=== PATIENT | female | born 1950 | race Caucasian/White ===

== ENCOUNTER 2017-09-30 22:39 | Emergency (ER) | payer OTHER ==
[2017-09-30 22:44] VITALS: BP 119/76; PULSE 65; TEMP 98; BMI 24.1
--- NOTE | 2017-09-30 22:44 | PDOC ---
History of Present Illness - General Chief Complaint: Injury Stated Complaint: S/P FALL PAIN/SWELLING R 1ST DIGIT Time Seen by Provider: 09/30/17 22:42 History Source: Patient Exam Limitations: No Limitations - History of Present Illness Initial Comments: This is a 67-year-old female who comes in complaining of pain to her right first digit. Patient said she tripped and stubbed her toe resulting in injury to the toe. PAST MEDICAL HISTORY: no significant history PAST SURGICAL HISTORY: no significant history FAMILY HISTORY: no pertinant history SOCIAL HISTORY: Pt lives with family and is employed. MEDICATIONS: reviewed ALLERGIES: As per nursing notes Review of Systems General: No fevers or chills, no weakness, no weight loss HEENT: No change in vision. No sore throat,. No ear pain CardioVascular: No chest pain or shortness of breath Respiratory:No cough, or wheezing. Gastrointestinal: no nausea, vomitting, diarrhea or constipation, No rectal bleeding Genitourinary: No dysuria, hematuria, or frequency Musculoskeletal: No joint or muscle pain or swelling Neurologic: No headache, vertigo, dizziness or loss of consciousness Psychiatric: nor depression Skin: No rashes or easy bruising Endocrine: no increased thirst or abnormal weight change Allergic: no skin or latex allergy All other systems reviewed and normal GENERAL: The patient is awake, alert, and fully oriented, in no acute distress. HEAD: Normal with no signs of trauma. EYES: Pupils equal, round and reactive to light, extraocular movements intact, sclera anicteric, conjunctiva clear. EXTREMITIES: Normal range of motion, no edema. Right great toe there is ecchymosis and pain on palpation of the base of the great toe. Neurovascular distal is intact. NEUROLOGICAL: Normal speech, normal gait. grossly intact PSYCH: Normal mood, normal affect. SKIN: Warm, Dry, normal turgor, no rashes or lesions noted. Past History - Past Medical History Allergies/Adverse Reactions: Allergies Allergy/AdvReac Type Severity Reaction Status Date / Time No Known Allergies Allergy Verified 08/05/14 20:35 Home Medications: Ambulatory Orders Amlodipine Besylate/Benazepril [Lotrel 10-20 mg Capsule] 1 each PO DAILY #30 capsule 06/10/12 Atorvastatin Calcium [Lipitor] 10 mg PO HS #0 tablet 06/10/12 Pantoprazole Sodium [Protonix -] 40 mg PO DAILY #10 tablet.ec 08/09/14 GI Disorders: (hx diverticulitis) HTN: Yes Hypercholesterolemia: Yes - Immunization History Immunization Up to Date: Yes - Suicide/Smoking/Psychosocial Hx Smoking Status: No Smoking History: Never smoked Years of Tobacco Use: 0 Have you smoked in the past 12 months: No Number of Cigarettes Smoked Daily: 0 If you are a former smoker, when did you quit?: 15 years ago Cigars Per Day: 0 Hx Alcohol Use: No Drug/Substance Use Hx: No Substance Use Type: None Hx Substance Use Treatment: No *DC/Admit/Observation/Transfer Diagnosis at time of Disposition: Fracture of right great toe Qualifiers: Encounter type: initial encounter Fracture type: closed Phalanx: proximal Fracture alignment: nondisplaced Qualified Code(s): S92.414A - Nondisplaced fracture of proximal phalanx of right great toe, initial encounter for closed fracture - Discharge Dispostion Disposition: HOME Condition at time of disposition: Good Decision to Admit order: No - Referrals - Patient Instructions Additional Instructions: Grey tape the toe as often as needed. Tylenol or Motrin for pain wear open toed shoe. Return to the emergency department immediately with ANY new, persistent or worsening symptoms. Continue any medications as previously prescribed by your physician. You should follow up with your primary doctor as soon as possible regarding today's emergency department visit. . Please make sure your doctor reviews the results of your emergency evaluation. Thank you for coming to the Emergency Department today for your care. It was a pleasure to see you today. Please note that your evaluation is INCOMPLETE until you follow-up with your doctor. - Post Discharge Activity
[2017-09-30] MEDS ORDERED: DIPHTH,PERTUSS(ACELL),TET 0.5 ML DISP.SYRIN IM ONE (22:45)
== END 2017-09-30 23:36 | disposition home or self-care (01) ==
LOC: FER 22:39
PROC: 3E0234Z Introduction of Serum, Toxoid and Vaccine into Muscle, Percutaneous Approach (ICD-10-PCS; principal; 2017-09-30)
PROC: 2W3UXYZ Immobilization of Right Toe using Other Device (ICD-10-PCS; 2017-09-30)
DX: S92.414A Nondisplaced fracture of proximal phalanx of right great toe, initial encounter for closed fracture (principal); Z87.891 Personal history of nicotine dependence; I10 Essential (primary) hypertension; E78.00 Pure hypercholesterolemia, unspecified; W22.01XA Walked into wall, initial encounter; Y93.89 Activity, other specified; Y92.9 Unspecified place or not applicable
CPT/HCPCS: 73630-TC-RT-FY; 73660-TC-FY; 90715; 99282-25

== ENCOUNTER 2018-10-21 22:32 | Emergency (ER) | payer OTHER ==
[2018-10-21 22:42] VITALS: BP 121/67; PULSE 63; TEMP 98.6; BMI 25.0
[2018-10-21] MEDS ORDERED: SODIUM CHLORIDE 1,000 ML IV STA (23:42)
[2018-10-21] MEDS ORDERED: ONDANSETRON 4 MG/2 ML VIAL IVPUSH ONE (23:43)
[2018-10-22] MEDS ORDERED: ACETAMINOPHEN 1000 MG/100 ML VIAL (NON FORMULARY) IVPB ONE (00:29)
[2018-10-22 01:06] LABS: BASO % 0.2 % (0-2.0); EOS % 0.1 % (0-4.5); HEMATOCRIT 38.3 % (32.4-45.2); HEMOGLOBIN 12.9 GM/dL (10.7-15.3); LYMPH % 5.6 % (8-40); MCH 29.6 pg (25.7-33.7); MCHC 33.7 g/dl (32.0-36.0); MEAN CELL VOLUME 87.7 fl (80-96); MEAN PLT VOLUME 9.5 fl (7.5-11.1); MONO % 2.5 % (3.8-10.2); NEUT % 91.6 % (42.8-82.8); PLATELET COUNT 247 K/MM3 (134-434); RBC 4.36 M/mm3 (3.60-5.2); RDW 13.4 % (11.6-15.6); WHITE BLOOD COUNT 9.7 K/mm3 (4.0-10.0)
[2018-10-22 01:14] LABS: ALBUMIN 3.9 g/dl (3.4-5.0); BILIRUBIN,TOTAL 0.3 mg/dL (0.2-1); BLOOD UREA NITROGEN 14.8 mg/dL (7-18); CALCIUM 8.8 mg/dL (8.5-10.1); CREATININE 0.6 mg/dL (0.55-1.3); TOT PROT 7.4 g/dl (6.4-8.2)
[2018-10-22] MEDS ORDERED: ONDANSETRON 4 MG/2 ML VIAL ONE (01:34)
--- NOTE | 2018-10-22 01:36 | PDOC ---
History of Present Illness - General Chief Complaint: Nausea/Vomiting Stated Complaint: NAUSEA/VOMITING Time Seen by Provider: 10/21/18 23:32 History Source: Patient Exam Limitations: No Limitations Past History - Past Medical History Allergies/Adverse Reactions: Allergies Allergy/AdvReac Type Severity Reaction Status Date / Time No Known Allergies Allergy Verified 10/21/18 22:42 Home Medications: Ambulatory Orders Amlodipine Besylate/Benazepril [Lotrel 10-20 mg Capsule] 1 each PO DAILY #30 capsule 06/10/12 Atorvastatin Calcium [Lipitor] 10 mg PO HS #0 tablet 06/10/12 Pantoprazole Sodium [Protonix -] 40 mg PO DAILY #10 tablet.ec 08/09/14 COPD: No GI Disorders: (hx diverticulitis) HTN: Yes Hypercholesterolemia: Yes - Immunization History Immunization Up to Date: Yes - Suicide/Smoking/Psychosocial Hx Smoking Status: No Smoking History: Never smoked Years of Tobacco Use: 0 Have you smoked in the past 12 months: No Number of Cigarettes Smoked Daily: 0 If you are a former smoker, when did you quit?: 15 years ago Cigars Per Day: 0 Hx Alcohol Use: No Drug/Substance Use Hx: No Substance Use Type: None Hx Substance Use Treatment: No *Physical Exam - Vital Signs Last Vital Signs Temp Pulse Resp BP Pulse Ox 98.6 F 63 18 121/67 97 10/21/18 22:39 10/21/18 22:39 10/21/18 22:39 10/21/18 22:39 10/21/18 22:39 - Physical Exam General Appearance: No: Apparent Distress Respiratory/Chest: positive: Lungs Clear, Normal Breath Sounds. negative: Respiratory Distress Cardiovascular: positive: Regular Rhythm, Regular Rate, S1, S2. negative: Murmur Gastrointestinal/Abdominal: positive: Normal Bowel Sounds, Soft. negative: Tender, Distended, Guarding, Rebound Musculoskeletal: negative: CVA Tenderness Integumentary: positive: Normal Color Neurologic: positive: Alert, Normal Mood/Affect ED Treatment Course - LABORATORY CBC & Chemistry Diagram: 10/22/18 00:34 10/22/18 00:34 - ADDITIONAL ORDERS Additional order review: Laboratory Results 10/22/18 00:34 Sodium 139 Potassium 4.0 Chloride 105 Carbon Dioxide 26 Anion Gap 8 BUN 14.8 Creatinine 0.6 Est GFR (CKD-EPI)AfAm 107.03 Est GFR (CKD-EPI)NonAf 92.35 Random Glucose 127 H Calcium 8.8 Total Bilirubin 0.3 AST 21 ALT 25 Alkaline Phosphatase 121 H Total Protein 7.4 Albumin 3.9 Lipase 219 10/22/18 00:34 RBC 4.36 MCV 87.7 MCHC 33.7 RDW 13.4 MPV 9.5 Neutrophils % 91.6 H D Lymphocytes % 5.6 L D Monocytes % 2.5 L Eosinophils % 0.1 D Basophils % 0.2 - RADIOLOGY Radiology Studies Ordered: Category Date Time Status ABDOMEN FLAT & UPRIGHT [RAD] Stat Radiology 10/22/18 00:36 Taken Medical Decision Making - Medical Decision Making 68 y/o F with hx of HTN, HLD, SBO x2 (treated conservatively), FROYLAN presents with generalized abd pain, nausea and soft stools which started around 2 hours after eating pesto sauce. Patient has been trying to induce herself to vomit as she felt naseous but nothing was coming up on its own. Denies fever, sob, cp, urinary complaints. Labs reviewed and unremarkable Flat and upright abdominal xray shows no air fluid levels; only stool noted (so unlikely SBO) Patient given IVF, Zofran, Tylenol Pending reassessment post meds and PO challenge 10/22/18 01:38 Patient signed out to Dr. Nava pending reassessment and PO challenge 10/22/18 02:04 *DC/Admit/Observation/Transfer Diagnosis at time of Disposition: Gastroenteritis - Referrals Referrals: Ernesto Gomez MD [Primary Care Provider] - - Patient Instructions - Post Discharge Activity
[2018-10-22] MEDS ORDERED: ACETAMINOPHEN INJECTION 100 ML IVPB ONE (01:38)
--- NOTE | 2018-10-22 02:08 | PDOC ---
*Physical Exam - Vital Signs Last Vital Signs Temp Pulse Resp BP Pulse Ox 98.6 F 63 18 121/67 97 10/21/18 22:39 10/21/18 22:39 10/21/18 22:39 10/21/18 22:39 10/21/18 22:39 <Prosper Arias - Last Filed: 10/22/18 02:08> - Vital Signs Last Vital Signs Temp Pulse Resp BP Pulse Ox 98.6 F 63 18 121/67 97 10/21/18 22:39 10/21/18 22:39 10/21/18 22:39 10/21/18 22:39 10/21/18 22:39 <Godwin Nava - Last Filed: 10/22/18 02:38> ED Treatment Course - LABORATORY CBC & Chemistry Diagram: 10/22/18 00:34 10/22/18 00:34 - ADDITIONAL ORDERS Additional order review: Laboratory Results 10/22/18 00:34 Sodium 139 Potassium 4.0 Chloride 105 Carbon Dioxide 26 Anion Gap 8 BUN 14.8 Creatinine 0.6 Est GFR (CKD-EPI)AfAm 107.03 Est GFR (CKD-EPI)NonAf 92.35 Random Glucose 127 H Calcium 8.8 Total Bilirubin 0.3 AST 21 ALT 25 Alkaline Phosphatase 121 H Total Protein 7.4 Albumin 3.9 Lipase 219 10/22/18 00:34 RBC 4.36 MCV 87.7 MCHC 33.7 RDW 13.4 MPV 9.5 Neutrophils % 91.6 H D Lymphocytes % 5.6 L D Monocytes % 2.5 L Eosinophils % 0.1 D Basophils % 0.2 - Medications Given in the ED: ED Medications Discontinued Medications Generic Name Dose Route Start Last Admin Trade Name Jessica PRN Reason Stop Dose Admin Acetaminophen 1,000 mg 10/22/18 00:29 10/22/18 01:43 Ofirmev Injection - IVPB 10/22/18 00:30 1,000 mg ONCE ONE Administration Sodium Chloride 1,000 mls @ 1,000 mls/hr 10/21/18 23:42 10/22/18 01:34 Normal Saline - IV 10/22/18 00:41 1,000 mls/hr ASDIR STA Administration Ondansetron HCl 4 mg 10/21/18 23:43 10/22/18 01:43 Zofran Injection IVPUSH 10/21/18 23:44 4 mg ONCE ONE Administration <Prosper Arias - Last Filed: 10/22/18 02:08> - LABORATORY CBC & Chemistry Diagram: 10/22/18 00:34 10/22/18 00:34 - ADDITIONAL ORDERS Additional order review: Laboratory Results 10/22/18 00:34 Sodium 139 Potassium 4.0 Chloride 105 Carbon Dioxide 26 Anion Gap 8 BUN 14.8 Creatinine 0.6 Est GFR (CKD-EPI)AfAm 107.03 Est GFR (CKD-EPI)NonAf 92.35 Random Glucose 127 H Calcium 8.8 Total Bilirubin 0.3 AST 21 ALT 25 Alkaline Phosphatase 121 H Total Protein 7.4 Albumin 3.9 Lipase 219 10/22/18 00:34 RBC 4.36 MCV 87.7 MCHC 33.7 RDW 13.4 MPV 9.5 Neutrophils % 91.6 H D Lymphocytes % 5.6 L D Monocytes % 2.5 L Eosinophils % 0.1 D Basophils % 0.2 - Medications Given in the ED: ED Medications Discontinued Medications Generic Name Dose Route Start Last Admin Trade Name Jessica PRN Reason Stop Dose Admin Acetaminophen 1,000 mg 10/22/18 00:29 10/22/18 01:43 Ofirmev Injection - IVPB 10/22/18 00:30 1,000 mg ONCE ONE Administration Sodium Chloride 1,000 mls @ 1,000 mls/hr 10/21/18 23:42 10/22/18 01:34 Normal Saline - IV 10/22/18 00:41 1,000 mls/hr ASDIR STA Administration Ondansetron HCl 4 mg 10/21/18 23:43 10/22/18 01:43 Zofran Injection IVPUSH 10/21/18 23:44 4 mg ONCE ONE Administration <Godwin Nava - Last Filed: 10/22/18 02:38> Medical Decision Making - Medical Decision Making 10/22/18 02:08 Case reviewed, agree with assessment and plan <Prosper Arias - Last Filed: 10/22/18 02:08> - Medical Decision Making 10/22/18 02:37 The patient was reassessed and reports improvement in their symptoms and has tolerated PO here in the ED. We are comfortable discharging the patient home in stable condition. Patient and family made aware of impression and plan, return precautions discussed including but not limited to worsening pain or symptoms, fevers, or signs of infection, chest pain, respiratory distress, inability to tolerate oral intake, dehydration, syncope, or neurologic changes. The patient is to follow up with PMD as recommended within 1 week, follow up information provided and the patient will call for an appointment. The patient is to take medications as instructed for duration of time and continue with supportive care , avoid triggers and precipitants. Patient is safe for outpatient follow-up. <Godwin Nava - Last Filed: 10/22/18 02:38> *DC/Admit/Observation/Transfer <Prosper Arias - Last Filed: 10/22/18 02:08> <Godwin Nava - Last Filed: 10/22/18 02:38> Diagnosis at time of Disposition: Gastroenteritis - Discharge Dispostion Disposition: HOME Condition at time of disposition: Stable - Referrals Referrals: Ernesto Goemz MD [Primary Care Provider] - - Patient Instructions Printed Discharge Instructions: DI for Viral Gastroenteritis -- Adult Additional Instructions: 1) Please follow-up with your primary care doctor in the next 2-3 days. Please call tomorrow to schedule a follow up appointment. If you cannot follow up with your doctor within 1 week please return to the Emergency Department for any urgent issues. 2) Your laboratory / imaging results were normal here in the ER. 3) If you have any worsening of symptoms or any other concerns please return to the ER immediately. Return if worsening symptoms including fevers, headache, vomiting, visual or hearing disturbances, abdominal pain, chest pain, shortness of breath, syncope, dehydration, inability to take things by mouth/vomiting, altered mental status, or worsening concerning symptoms. 4) Please continue taking your home medications as directed. Side effects may include upset stomach, abdominal pain, vomiting, or diarrhea. Do not drink alcohol with your medications. - Post Discharge Activity
== END 2018-10-22 02:55 | disposition home or self-care (01) ==
LOC: JER 22:32
PROC: 3E0337Z Introduction of Electrolytic and Water Balance Substance into Peripheral Vein, Percutaneous Approach (ICD-10-PCS; principal; 2018-10-21)
PROC: 3E033GC Introduction of Other Therapeutic Substance into Peripheral Vein, Percutaneous Approach (ICD-10-PCS; 2018-10-21)
PROC: 3E033NZ Introduction of Analgesics, Hypnotics, Sedatives into Peripheral Vein, Percutaneous Approach (ICD-10-PCS; 2018-10-21)
DX: K52.9 Noninfective gastroenteritis and colitis, unspecified (principal); I10 Essential (primary) hypertension; E78.00 Pure hypercholesterolemia, unspecified; Z87.19 Personal history of other diseases of the digestive system
CPT/HCPCS: 36415; 74019-TC-FY; 80053; 83690; 85025; 99283-25; J0131; J7030

== ENCOUNTER 2019-01-06 23:34 | Inpatient (IN) | payer OTHER ==
[2019-01-07] MEDS ORDERED: ONDANSETRON 4 MG/2 ML VIAL IVPB ONE
[2019-01-07] MEDS ORDERED: SODIUM CHLORIDE 1,000 ML IV STA
[2019-01-07] MEDS ORDERED: ACETAMINOPHEN 1000 MG/100 ML VIAL (NON FORMULARY) IVPB ONE (00:15)
--- NOTE | 2019-01-07 00:24 | PDOC ---
History of Present Illness - General Chief Complaint: Nausea/Vomiting Stated Complaint: VOMITING/FEVER Time Seen by Provider: 01/06/19 23:59 History Source: Patient Exam Limitations: Language Barrier - History of Present Illness Travel History: No Initial Comments: 01/07/19 00:17 68yo F with PMH of HTN, HLD, diverticulosis, s/p hysterectomy presenting to ED with complaints of abdominal pain, nausea and vomiting that started last night around 8pm after eating rice and beans. She states the pain is 9/10, diffuse, does not radiate. She vomited 4 times (nbnb) and had a bowel movement today which she describes as normal. No one else in the household has similar symptoms. Denies fevers, chills, chest pain, sob, numbness/tingling, headache. PMD: PMH: see hpi PSH: hysterectomy Meds: see med rec Allergies: nkda Past History - Past Medical History Allergies/Adverse Reactions: Allergies Allergy/AdvReac Type Severity Reaction Status Date / Time No Known Allergies Allergy Verified 01/06/19 23:47 Home Medications: Ambulatory Orders Atorvastatin Calcium [Lipitor] 10 mg PO HS #0 tablet 06/10/12 Amlodipine Besylate [Norvasc -] 10 mg PO DAILY 01/07/19 COPD: No GI Disorders: (hx diverticulitis) HTN: Yes Hypercholesterolemia: Yes - Immunization History Immunization Up to Date: Yes - Psycho Social/Smoking Cessation Hx Smoking Status: No Smoking History: Never smoked Years of Tobacco Use: 0 Have you smoked in the past 12 months: No Number of Cigarettes Smoked Daily: 0 If you are a former smoker, when did you quit?: 15 years ago Cigars Per Day: 0 Information on smoking cessation initiated: No Hx Alcohol Use: No Drug/Substance Use Hx: No Substance Use Type: None Hx Substance Use Treatment: No Review of Systems - Review of Systems Constitutional: No: Symptoms Reported HEENTM: No: Symptoms Reported Respiratory: No: Symptoms reported Cardiac (ROS): No: Symptoms Reported ABD/GI: Yes: See HPI : No: Symptoms Reported, Burning, Dysuria, Frequency Musculoskeletal: No: Symptoms Reported Integumentary: No: Symptoms Reported *Physical Exam - Vital Signs Last Vital Signs Temp Pulse Resp BP Pulse Ox 98.1 F 75 20 108/70 100 01/06/19 23:48 01/06/19 23:48 01/06/19 23:48 01/06/19 23:48 01/06/19 23:48 - Physical Exam General Appearance: Yes: Nourished, Appropriately Dressed, Moderate Distress HEENT: positive: EOMI, GAIL, Normal ENT Inspection Neck: positive: Trachea midline, Supple Respiratory/Chest: positive: Lungs Clear, Normal Breath Sounds. negative: Crackles, Rales, Rhonchi, Stridor, Wheezing Cardiovascular: positive: Regular Rhythm, Regular Rate, S1, S2. negative: Edema , JVD, Murmur Vascular Pulses: Dorsalis-Pedis (R): 2+, Doralis-Pedis (L): 2+ Gastrointestinal/Abdominal: positive: Normal Bowel Sounds, Tender (diffuse, greatest near umbilicus. Negative Rovsing. ), Soft. negative: Pulsatile Mass, Distended, Guarding, Rebound Musculoskeletal: negative: CVA Tenderness Extremity: positive: Normal Capillary Refill. negative: Pedal Edema, Swelling, Calf Tenderness Integumentary: positive: Normal Color, Dry, Warm Neurologic: positive: shoe folder II-XII NML intact, Fully Oriented, Alert, Normal Mood/ Affect, Normal Response, Motor Strength 08/15 ED Treatment Course - LABORATORY CBC & Chemistry Diagram: 01/07/19 00:35 01/07/19 00:35 - RADIOLOGY Radiology Studies Ordered: Category Date Time Status ABDOMEN & PELVIS CT WITH CONTR [CT] Stat CT Scan 01/07/19 00:16 Ordered Medical Decision Making - Medical Decision Making 01/07/19 00:21 68yo F with PMH of HTN, diverticulosis, s/p hysterectomy presenting to ED with complaints of abdominal pain, nausea and vomiting that started last night around 8pm after eating rice and beans. She states the pain is 9/10, diffuse, does not radiate. She vomited 4 times (nbnb) and had a bowel movement today which she describes as normal. No one else in the household has similar symptoms. Denies fevers, chills, chest pain, sob, numbness/tingling, headache. Vitals: slightly hypotensive, afebrile, hr wnl PE: diffuse abdominal tenderness greatest in umbilical area. no rebound, no guarding. ddx includes but not limited to appendicitis, colitis, diverticulitis, sbo, cholecystitis, pancreatitis, cholangitis, gastritis, enterocolitis, mesenteric ischemia, abscess, atypical acs, aaa likely gastritis/gastroenteritis ordering labs including lactate, lipase, trop, ekg, ctap with iv contrast will give fluids, ofirmev, zofran, pepcid. 01/07/19 02:04 upon reassessment, pain improved, nausea improved, pt feeling much better. labs wnl. pending CT scan. ekg: nsr at 65bpm, pr 142, [id number]. no ailyn or depressions. no signs of ischemia. 01/07/19 03:56 CT: multiple dilated loops of small bowel with transition point in the anterior RLQ, suspicions for sbo. diverticulosis w/o diverticulitis. no free air. small hiatal hernia. trace free fluid and mild perienteric fatty stranding. consulted surgery. will admit pt for sbo. making pt npo Discharge - Discharge Information Problems reviewed: Yes Clinical Impression/Diagnosis: SBO (small bowel obstruction) Nausea & vomiting Qualifiers: Vomiting type: unspecified Vomiting Intractability: non-intractable Qualified Code(s): R11.2 - Nausea with vomiting, unspecified Abdominal pain Qualifiers: Abdominal location: generalized Qualified Code(s): R10.84 - Generalized abdominal pain Condition: Good - Admission Yes - Follow up/Referral - Patient Discharge Instructions - Post Discharge Activity
[2019-01-07] MEDS ORDERED: ONDANSETRON 4 MG/2 ML VIAL ONE (00:32)
[2019-01-07] MEDS ORDERED: FAMOTIDINE 20 MG/50 ML IVPB 20 MG/50 ML MG IVPB ONE ×2 (00:32)
[2019-01-07] MEDS ORDERED: ACETAMINOPHEN INJECTION 100 ML IVPB ONE (00:32)
[2019-01-07 00:47] LABS: BASO % 0.2 % (0-2.0); EOS % 0.1 % (0-4.5); HEMATOCRIT 41.7 % (32.4-45.2); HEMOGLOBIN 13.5 GM/dL (10.7-15.3); LYMPH % 5.8 % (8-40); MCH 28.7 pg (25.7-33.7); MCHC 32.4 g/dl (32.0-36.0); MEAN CELL VOLUME 88.6 fl (80-96); MEAN PLT VOLUME 9.8 fl (7.5-11.1); MONO % 2.6 % (3.8-10.2); NEUT % 91.3 % (42.8-82.8); PLATELET COUNT 236 K/MM3 (134-434); RBC 4.71 M/mm3 (3.60-5.2); RDW 14.2 % (11.6-15.6); WHITE BLOOD COUNT 12.6 K/mm3 (4.0-10.0)
--- NOTE | 2019-01-07 00:57 | PDOC ---
Attending Attestation - Resident Resident Name: Katerina Lezama - ED Attending Attestation I have performed the following: I have examined & evaluated the patient, The case was reviewed & discussed with the resident, I agree w/resident's findings & plan, Exceptions are as noted - HPI HPI: 01/07/19 01:34 68F pmh HTN, diverticulosis, s/p hysterectomy here with abdominal pain, n/v, nbnb. Pain is 9/10, sabra-umbilical, started after a meal of rice and beans last evening. - Physicial Exam PE: 01/07/19 01:37 NAD, AOx3 +periumbilical TTP, no guarding, no rebound - Medical Decision Making 01/07/19 01:46 Abd px, n/v consider, diverticulitis, cholecystitis, appy, pancreatitis, gastritis AGE f/u labs, ekg, ctap symptomatic tx dispo per clinical course 01/07/19 04:25 Imaging consistent with SBO Gen surg notified admit
[2019-01-07 01:13] LABS: ANISOCYTOSIS 0; MACROCYTOSIS 0; OVALOCYTE 0; PLATELET ESTIMATE NORMAL
[2019-01-07 01:16] LABS: LIPASE 160 U/L (73-393)
[2019-01-07 01:39] LABS: ALBUMIN 4.1 g/dl (3.4-5.0); ALK PHOS 132 U/L (45-117); ANION GAP 11 MMOL/L (8-16); BILIRUBIN,TOTAL 0.5 mg/dL (0.2-1); BLOOD UREA NITROGEN 15.6 mg/dL (7-18); CALCIUM 9.5 mg/dL (8.5-10.1); CHLORIDE 106 mmol/L (98-107); CO2 25 mmol/L (21-32); CREATININE 0.7 mg/dL (0.55-1.3); GLUCOSE,RANDOM 139 mg/dL (74-106); SGOT/AST 28 U/L (15-37); SGPT/ALT 29 U/L (13-61); SODIUM 143 mmol/L (136-145); TOT PROT 7.6 g/dl (6.4-8.2)
--- NOTE | 2019-01-07 05:26 | PN ---
Teaching Attending Note Name of Resident: Sri Norman ATTENDING PHYSICIAN STATEMENT I saw and evaluated the patient. I reviewed the resident's note and discussed the case with the resident. I agree with the resident's findings and plan as documented. SUBJECTIVE: Patient is a 68 year old woman with a PMH of HTN, HLD, Diverticulosis, and Hysterectomy who presents to the ER with complaints of abdominal pain, nausea and vomiting that started last night around 8pm after eating rice and beans. She states the pain is 9/10, diffuse and does not radiate. She vomited 4 times and had a bowel movement today which she describes as normal. No one else in the household has similar symptoms. Denies fevers, chills, chest pain, SOB, numbness, tingling and headache. OBJECTIVE: Alert Vital Signs Period Temp Pulse Resp BP Sys/Andrews Pulse Ox Last 24 Hr 98.0 F-98.1 F 66-75 16-20 108-120/69-70 97-100 HEENT: No Jaundice, eye redness or discharge, PERRLA, EOMI. Normocephalic, atraumatic. External ears are normal and hearing is grossly intact. No nasal discharge. Neck: Supple, nontender. No palpable adenopathy or thyromegaly. No JVD Chest: Good effort. Clear to auscultation and percussion. Heart: Regular. No S3, rub or murmur Abdomen: Not distended, soft, no tenderness and no HSM. No rebound or guarding. Normal bowel sounds. Ext: Peripheral pulses intact. No leg edema. Skin: Warm and dry. No petechiae, rash or ecchymosis. Neuro: Alert. Oriented x3. CN 2-12 grossly intact. Sensation grossly intact in all four extremities and DTR are symmetric. Psych: Appropriate mood and affect. Good insight. Home Medications Medication Instructions Recorded Atorvastatin Calcium [Lipitor] 10 mg PO HS #0 tablet 06/10/12 Amlodipine Besylate [Norvasc -] 10 mg PO DAILY 01/07/19 Abnormal Lab Results 01/07/19 01/07/19 00:35 00:35 WBC 12.6 H Absolute Neuts (auto) 11.5 H Neutrophils % 91.3 H Neutrophils % (Manual) 98.0 H Lymphocytes % 5.8 L Lymphocytes % (Manual) 1.0 L D Monocytes % 2.6 L Monocytes % (Manual) 0 L Nucleated RBC % 3 H Random Glucose 139 H Alkaline Phosphatase 132 H ASSESSMENT AND PLAN: 1. Small bowel obstruction - CT sacn of abdomen/pelvis showed multiple dilated loops of small bowel with transition point in the anterior RLQ, suspicions for SBO; diverticulosis without diverticulitis. No free air. Small hiatal hernia. Trace free fluid and mild perienteric fatty stranding. Leukocytosis likely due to stress. CXR and urinalysis pending. In the ER, she got IV fluids, Ofirmev, Zofran and Pepcid. Reports feeling better. Will keep her NPO, continue IV fluids and pain control. Surgery consulted. Will continue comprehensive care for all of patients comorbid conditions. 2. DVT prophylaxis - SCD 3. Advance directives - Full code
--- NOTE | 2019-01-07 07:07 | HP ---
CHIEF COMPLAINT: abdominal pain PCP: not on staff HISTORY OF PRESENT ILLNESS: 75 y.o. F PMH HTN, HLD, diverticulosis presented with 9/10 abdominal pain. Pt says she ate dinner around 8pm (rice & beans) and within 30 minutes felt severe abdominal pain- the pain was sharp, constant, did not radiate and stayed localized to lower abdomen. Pt also had 4 episodes NBNB emesis last night with nausea. She has not taken anything to relieve the pain at home. Currently patient has no more abdominal pain, is not nauseous or vomiting. ROS: Denies CP SOB/ N/V/D. ER course was notable for: (1) WBC 12.6 (2) Pepcid 20mg IV, zofran 4mg IV (3)IV tylenol 1g, 1L NS Recent Travel: denies PAST MEDICAL HISTORY: as per hpi PAST SURGICAL HISTORY: hysterectomy, c-sxn Social History: Smoking: quit 15 yrs ago Alcohol:denies Drugs: denies Allergies No Known Allergies Allergy (Verified 01/06/19 23:47) HOME MEDICATIONS: Home Medications Medication Instructions Recorded Atorvastatin Calcium [Lipitor] 10 mg PO HS #0 tablet 06/10/12 Amlodipine Besylate [Norvasc -] 10 mg PO DAILY 01/07/19 REVIEW OF SYSTEMS CONSTITUTIONAL: Absent: fever, chills, diaphoresis, generalized weakness, malaise, loss of appetite, weight change HEENT: Absent: rhinorrhea, nasal congestion, throat pain, throat swelling, difficulty swallowing, mouth swelling, ear pain, eye pain, visual changes CARDIOVASCULAR: Absent: chest pain, syncope, palpitations, irregular heart rate, lightheadedness , peripheral edema RESPIRATORY: Absent: cough, shortness of breath, dyspnea with exertion, orthopnea, wheezing, stridor, hemoptysis GASTROINTESTINAL: Absent: abdominal pain, abdominal distension, nausea, vomiting, diarrhea, constipation, melena, hematochezia GENITOURINARY: Absent: dysuria, frequency, urgency, hesitancy, hematuria, flank pain, genital pain MUSCULOSKELETAL: Absent: myalgia, arthralgia, joint swelling, back pain, neck pain SKIN: Absent: rash, itching, pallor HEMATOLOGIC/IMMUNOLOGIC: Absent: easy bleeding, easy bruising, lymphadenopathy, frequent infections ENDOCRINE: Absent: unexplained weight gain, unexplained weight loss, heat intolerance, cold intolerance NEUROLOGIC: Absent: headache, focal weakness or paresthesias, dizziness, unsteady gait, seizure, mental status changes, bladder or bowel incontinence PSYCHIATRIC: Absent: anxiety, depression, suicidal or homicidal ideation, hallucinations. PHYSICAL EXAMINATION Vital Signs - 24 hr 01/06/19 01/07/19 23:48 03:46 Temperature 98.1 F 98.0 F Pulse Rate 75 Pulse Rate [ 66 Left Radial] Respiratory 20 16 Rate Blood Pressure 108/70 Blood Pressure 120/69 [Left Arm] O2 Sat by Pulse 100 97 Oximetry (%) GENERAL: Awake, alert, and fully oriented, in no acute distress. LUNGS: Breath sounds equal, clear to auscultation bilaterally. No wheezes, and no crackles. No accessory muscle use. HEART: Regular rate and rhythm, normal S1 and S2 without murmur, rub or gallop. ABDOMEN: Soft, nontender, not distended, normoactive bowel sounds, no guarding. No organomegaly. Negative mcburneys. Neg murphys UPPER EXTREMITIES: 2+ pulses, warm, well-perfused. No cyanosis. No clubbing. No peripheral edema. LOWER EXTREMITIES: 2+ pulses, warm, well-perfused. No calf tenderness. No peripheral edema. PSYCHIATRIC: Cooperative. Good eye contact. Appropriate mood and affect. SKIN: no rashes or lesions noted Laboratory Results - last 24 hr 01/07/19 01/07/19 01/07/19 00:35 00:35 00:35 WBC 12.6 H RBC 4.71 Hgb 13.5 Hct 41.7 MCV 88.6 MCH 28.7 MCHC 32.4 RDW 14.2 Plt Count 236 MPV 9.8 Absolute Neuts (auto) 11.5 H Neutrophils % 91.3 H Neutrophils % (Manual) 98.0 H Band Neutrophils % 0.0 Lymphocytes % 5.8 L Lymphocytes % (Manual) 1.0 L D Monocytes % 2.6 L Monocytes % (Manual) 0 L Eosinophils % 0.1 Eosinophils % (Manual) 0.0 Basophils % 0.2 Basophils % (Manual) 0.0 Myelocytes % (Man) 0 Promyelocytes % (Man) 0 Blast Cells % (Manual) 0 Nucleated RBC % 3 H Metamyelocytes 0 Hypochromia 0 Platelet Estimate Normal Polychromasia 0 Poikilocytosis 0 Anisocytosis 0 Microcytosis 0 Macrocytosis 0 Ovalocytes 0 Sodium 143 Cancelled Potassium 4.0 Cancelled Chloride 106 Cancelled Carbon Dioxide 25 Cancelled Anion Gap 11 Cancelled BUN 15.6 Cancelled Creatinine 0.7 Cancelled Est GFR (CKD-EPI)AfAm 101.74 Cancelled Est GFR (CKD-EPI)NonAf 87.78 Cancelled Random Glucose 139 H Cancelled Lactic Acid Calcium 9.5 Cancelled Total Bilirubin 0.5 Cancelled AST 28 Cancelled ALT 29 Cancelled Alkaline Phosphatase 132 H Cancelled Troponin I < 0.02 Total Protein 7.6 Cancelled Albumin 4.1 Cancelled Lipase 160 01/07/19 00:35 WBC RBC Hgb Hct MCV MCH MCHC RDW Plt Count MPV Absolute Neuts (auto) Neutrophils % Neutrophils % (Manual) Band Neutrophils % Lymphocytes % Lymphocytes % (Manual) Monocytes % Monocytes % (Manual) Eosinophils % Eosinophils % (Manual) Basophils % Basophils % (Manual) Myelocytes % (Man) Promyelocytes % (Man) Blast Cells % (Manual) Nucleated RBC % Metamyelocytes Hypochromia Platelet Estimate Polychromasia Poikilocytosis Anisocytosis Microcytosis Macrocytosis Ovalocytes Sodium Potassium Chloride Carbon Dioxide Anion Gap BUN Creatinine Est GFR (CKD-EPI)AfAm Est GFR (CKD-EPI)NonAf Random Glucose Lactic Acid 1.4 Calcium Total Bilirubin AST ALT Alkaline Phosphatase Troponin I Total Protein Albumin Lipase ASSESSMENT/PLAN: 68 y.o. F PMH HTN. HLD, diverticulosis presenting with abdominal pain #Small bowel obstruction -CT abd/ pel: multiple dilated small bowel loops with transition point in ant RLQ. Diverticulosis. Trace pelvic free fluid. Fatty stranding. Small hiatal hernia. -IVF NS -NPO -No NGT at this time -Dr. Doherty (surgery) consulted #HTN -C/w amlodipine 10mg PO daily- home med #HLD -C/w atorvastatin 10mg PO at bedtime- home med #FEN -IVF NS @75mL/ hr -monitor lytes -NPO #DVT PPX SCDS Visit type - Emergency Visit Emergency Visit: Yes ED Registration Date: 01/07/19 Care time: The patient presented to the Emergency Department on the above date and was hospitalized for further evaluation of their emergent condition. - New Patient This patient is new to me today: Yes Date on this admission: 01/07/19 - Critical Care Critical Care patient: No ATTENDING PHYSICIAN STATEMENT I saw and evaluated the patient. I reviewed the resident's note and discussed the case with the resident. I agree with the resident's findings and plan as documented. SUBJECTIVE: OBJECTIVE: ASSESSMENT AND PLAN:
[2019-01-07] MEDS ORDERED: ACETAMINOPHEN 1000 MG/100 ML VIAL (NON FORMULARY) IVPB PRN (07:16)
[2019-01-07] MEDS: SODIUM CHLORIDE 1,000 ML IV SCH (07:30)
--- NOTE | 2019-01-07 09:51 | CONSULT ---
- Consultation REQUESTING PROVIDER: General Surgery - Wilian Doherty CONSULT REQUEST: We have been asked to surgically evaluate this patient for abd pain w/ associated n/v PCP: Richie Plascencia HPI: Called to eve 75 y.o. F w/ PMHx as noted below. Comes to [facility] ED for further evaluation of her abd pain. Acute onset s/p eating dinner (rice and beans) followed by post prandial n/v (nbnb). Rated pain 9/10 on arrival at ED. Her history is significant for Hysterectomy and section. States shes had this before in the past and typically managed conservatively. While in the ED she had an ABD CT which identified dilated loops of SB with zone of transition in RLQ. Since arrival at hospital, patient states she is now passing a lot of flatus. Her last BM (semi-solid) was yesterday. Currently, denies n/v/f/c, CP, palpitations, SOB, JOSHUA. Denies dysuria, hematuria. PMHx: HTN, HLD, Diverticulosis PSHx: Hysterectomy. Section Home Medications Lipitor 10 mg PO HS Norvasc 10 mg PO Daily Allergies: NKDA ROS CONSTITUTIONAL: Absent: diaphoresis, generalized weakness, malaise, loss of appetite, weight change CARDIOVASCULAR: Absent: syncope, irregular heart rate, lightheadedness, peripheral edema RESPIRATORY: Absent: cough, wheezing, stridor, hemoptysis GASTROINTESTINAL: see hpi GENITOURINARY: Absent: frequency, urgency, hesitancy, flank pain MUSCULOSKELETAL: Absent: myalgia, arthralgia, joint swelling, back pain, neck pain SKIN: Absent: rash, itching, pallor HEMATOLOGIC/IMMUNOLOGIC: Absent: easy bleeding, easy bruising, lymphadenopathy NEUROLOGIC: Absent: headache, focal weakness, paresthesias, dizziness, unsteady gait, seizure, mental status changes, PSYCHIATRIC: Absent: anxiety, depression, suicidal or homicidal ideation, hallucinations. PE: GENERAL: Awake, alert, and fully oriented, in no acute distress. HEAD: Normal with no signs of trauma. EYES: PERRL, sclera anicteric, conjunctiva clear. NECK: Normal ROM, supple without lymphadenopathy, JVD, or masses. LUNGS: CTA bilat HEART: RRR ABDOMEN: Soft, nontender, not distended, hypoactive bowel sounds, no guarding, no rebound, no masses. No organomegaly. No hernias. Old Pfannenstiel incision well healed. MUSCULOSKELETAL: No CVAT bilat UE: 2+ pulses, warm, well-perfused. No cyanosis. Cap refill <2 seconds. No peripheral edema. LE: 2+ pulses, warm, well-perfused. No calf tenderness. No peripheral edema. PSYCH: Cooperative. Good eye contact. Appropriate mood and affect. SKIN: Warm, dry, normal turgor, no rashes or lesions noted. Last Vital Signs Temp Pulse Resp BP Pulse Ox 98.3 F 61 18 109/61 96 01/07/19 07:20 01/07/19 07:20 01/07/19 07:20 01/07/19 07:20 01/07/19 07:20 CBC, BMP 01/07/19 00:35 01/07/19 00:35 Hepatic Panel Total Bilirubin 0.5 mg/dL (0.2-1) 01/07/19 00:35 AST 28 U/L (15-37) 01/07/19 00:35 ALT 29 U/L (13-61) 01/07/19 00:35 Alkaline Phosphatase 132 U/L (45-117) H 01/07/19 00:35 Albumin 4.1 g/dl (3.4-5.0) 01/07/19 00:35 Problem List - Problems (1) Small bowel obstruction Assessment/Plan: 68 yo female admitted with PSBO with zone of transition located in RLQ. Mild leukocytosis. Patient is now asymptomatic. Recommend repeat AXR seeing as she is now passing flatus Cont NPO at this time IVF If n/v resume, place NGT Conservative management at this time Surgery Team to cont following Above plan discussed with Dr. Doherty and agrees Code(s): K56.69 - OTHER INTESTINAL OBSTRUCTION * DO NOT USE * (2) Abdominal pain Code(s): R10.9 - UNSPECIFIED ABDOMINAL PAIN Qualifiers: Abdominal location: generalized Qualified Code(s): R10.84 - Generalized abdominal pain (3) HLD (hyperlipidemia) Code(s): E78.5 - HYPERLIPIDEMIA, UNSPECIFIED (4) HTN (hypertension) Code(s): I10 - ESSENTIAL (PRIMARY) HYPERTENSION Visit type - Case Type Case Type: ED Admission - Emergency Emergency Visit: Yes ED Registration Date: 01/07/19 Care time: The patient presented to the Emergency Department on the above date and was hospitalized for further evaluation of their emergent condition. - New patient This patient is new to me today: Yes Date on this admission: 01/07/19
[2019-01-07] MEDS ORDERED: ENOXAPARIN NA (PORCINE) 40 MG/0.4 ML DISP.SYRIN SQ SCH (10:00)
[2019-01-07 10:34] VITALS: BMI 27.5
[2019-01-07 10:40] LABS: HEMOGLOBIN 11.8 GM/dL (10.7-15.3); MCH 29.2 pg (25.7-33.7); MCHC 32.7 g/dl (32.0-36.0); MEAN CELL VOLUME 89.3 fl (80-96); MEAN PLT VOLUME 9.3 fl (7.5-11.1); PLATELET COUNT 216 K/MM3 (134-434); RBC 4.03 M/mm3 (3.60-5.2); RDW 14.1 % (11.6-15.6); WHITE BLOOD COUNT 6.3 K/mm3 (4.0-10.0)
[2019-01-07 11:07] LABS: ALBUMIN 3.3 g/dl (3.4-5.0); BILIRUBIN,TOTAL 0.4 mg/dL (0.2-1); CALCIUM 8.4 mg/dL (8.5-10.1); CREATININE 0.6 mg/dL (0.55-1.3); MAGNESIUM 2.3 mg/dL (1.8-2.4); PHOSPHOROUS 3.1 mg/dL (2.5-4.9)
[2019-01-07] MEDS ORDERED: FLU VACCINE QUAD 60 MCG/0.5 ML (MDV 19-20) IM ONE (13:00)
--- NOTE | 2019-01-07 13:00 | PN ---
Progress Note (short form) - Note Progress Note: Attending Surgeon Seen and examined; concur w/ a/p as outlined in note by CARMEN García; films ordered for 01/08/19. Wilian Doherty MD FACS
--- NOTE | 2019-01-07 14:06 | EKG ---
Test Reason : Blood Pressure : / mmHG Vent. Rate : 065 BPM Atrial Rate : 065 BPM P-R Int : 142 ms QRS Dur : 094 ms QT Int : 428 ms P-R-T Axes : 036 011 032 degrees QTc Int : 445 ms NORMAL SINUS RHYTHM NON-SPECIFIC INTRA-VENTRICULAR CONDUCTION DELAY WHEN COMPARED WITH ECG OF 06-AUG-2014 00:35, NONSPECIFIC T WAVE ABNORMALITY NO LONGER EVIDENT IN ANTERIOR LEADS Confirmed by YAMILET COBB, SILVIA ([id number]) on 01/07/2019 2:05:48 PM Referred By: Confirmed By:SILVIA WOODARD MD
--- NOTE | 2019-01-07 15:46 | PN ---
Physical Exam: SUBJECTIVE: Patient seen and examined. pt endorse that her abdominal pain feels better and that she has been passing gas and BM OBJECTIVE: Vital Signs Period Temp Pulse Resp BP Sys/Andrews Pulse Ox Last 24 Hr 98.0 F-99.1 F 56-75 16-20 101-120/61-70 96-100 GENERAL: The patient is awake, alert, and fully oriented, in no acute distress. HEAD: Normal with no signs of trauma. ENT:oropharynx clear without exudates, moist mucous membranes. LUNGS: Breath sounds equal, clear to auscultation bilaterally, no wheezes, no crackles, no accessory muscle use. HEART: Regular rate and rhythm, S1, S2 without murmur, rub or gallop. ABDOMEN: Soft, nontender, nondistended, active bowel sounds, no guarding, no rebound, no hepatosplenomegaly, no masses. EXTREMITIES: 2+ pulses, warm, well-perfused, no edema. Laboratory Results - last 24 hr 01/07/19 01/07/19 01/07/19 00:35 00:35 00:35 WBC 12.6 H RBC 4.71 Hgb 13.5 Hct 41.7 MCV 88.6 MCH 28.7 MCHC 32.4 RDW 14.2 Plt Count 236 MPV 9.8 Absolute Neuts (auto) 11.5 H Neutrophils % 91.3 H Neutrophils % (Manual) 98.0 H Band Neutrophils % 0.0 Lymphocytes % 5.8 L Lymphocytes % (Manual) 1.0 L D Monocytes % 2.6 L Monocytes % (Manual) 0 L Eosinophils % 0.1 Eosinophils % (Manual) 0.0 Basophils % 0.2 Basophils % (Manual) 0.0 Myelocytes % (Man) 0 Promyelocytes % (Man) 0 Blast Cells % (Manual) 0 Nucleated RBC % 3 H Metamyelocytes 0 Hypochromia 0 Platelet Estimate Normal Polychromasia 0 Poikilocytosis 0 Anisocytosis 0 Microcytosis 0 Macrocytosis 0 Ovalocytes 0 Sodium 143 Cancelled Potassium 4.0 Cancelled Chloride 106 Cancelled Carbon Dioxide 25 Cancelled Anion Gap 11 Cancelled BUN 15.6 Cancelled Creatinine 0.7 Cancelled Est GFR (CKD-EPI)AfAm 101.74 Cancelled Est GFR (CKD-EPI)NonAf 87.78 Cancelled Random Glucose 139 H Cancelled Lactic Acid Calcium 9.5 Cancelled Phosphorus Magnesium Total Bilirubin 0.5 Cancelled AST 28 Cancelled ALT 29 Cancelled Alkaline Phosphatase 132 H Cancelled Troponin I < 0.02 Total Protein 7.6 Cancelled Albumin 4.1 Cancelled Lipase 160 01/07/19 01/07/19 01/07/19 00:35 10:22 10:22 WBC 6.3 RBC 4.03 Hgb 11.8 Hct 36.0 MCV 89.3 MCH 29.2 MCHC 32.7 RDW 14.1 Plt Count 216 MPV 9.3 Absolute Neuts (auto) Neutrophils % Neutrophils % (Manual) Band Neutrophils % Lymphocytes % Lymphocytes % (Manual) Monocytes % Monocytes % (Manual) Eosinophils % Eosinophils % (Manual) Basophils % Basophils % (Manual) Myelocytes % (Man) Promyelocytes % (Man) Blast Cells % (Manual) Nucleated RBC % Metamyelocytes Hypochromia Platelet Estimate Polychromasia Poikilocytosis Anisocytosis Microcytosis Macrocytosis Ovalocytes Sodium 142 Potassium 4.0 Chloride 109 H Carbon Dioxide 28 Anion Gap 5 L BUN 13.0 Creatinine 0.6 Est GFR (CKD-EPI)AfAm 107.03 Est GFR (CKD-EPI)NonAf 92.35 Random Glucose 89 Lactic Acid 1.4 Calcium 8.4 L Phosphorus 3.1 Magnesium 2.3 Total Bilirubin 0.4 AST 18 ALT 23 Alkaline Phosphatase 109 Troponin I Total Protein 6.0 L Albumin 3.3 L Lipase Active Medications Generic Name Dose Route Start Last Admin Trade Name Freq PRN Reason Stop Dose Admin Acetaminophen 1,000 mg 01/07/19 07:16 Ofirmev Injection - IVPB Q6H PRN PAIN LEVEL 6-10 Sodium Chloride 1,000 mls @ 75 mls/hr 01/07/19 07:15 01/07/19 07:30 Normal Saline - IV 75 mls/hr ASDIR ELAYNE Administration ASSESSMENT/PLAN: 68 y.o. F PMH HTN, HLD, diverticulosis presenting with abdominal pain, admitted for PSBO. Abdominal pain/ PSBO Conservative management for now CT abd/ pel: multiple dilated small bowel loops with transition point in ant RLQ. Diverticulosis. Trace pelvic free fluid. Fatty stranding. Small hiatal hernia. NS @75 NPO tylenol for pain PRN Per Surgery if N/V resume,No NGT HTN amlodipine 10mg PO daily if no vomiting FEN NS @75mL/ hr monitor lytes NPO DVT PPX SCDS Visit type - Emergency Visit Emergency Visit: Yes ED Registration Date: 01/07/19 Care time: The patient presented to the Emergency Department on the above date and was hospitalized for further evaluation of their emergent condition. - New Patient This patient is new to me today: Yes Date on this admission: 01/07/19 - Critical Care Critical Care patient: No - Discharge Referral Referred to [facility] Med P.C.: No ATTENDING PHYSICIAN STATEMENT I saw and evaluated the patient. I reviewed the resident's note and discussed the case with the resident. I agree with the resident's findings and plan as documented. SUBJECTIVE: OBJECTIVE: ASSESSMENT AND PLAN:
--- NOTE | 2019-01-07 16:44 | PN ---
Teaching Attending Note Name of Resident: Venus Mercado ATTENDING PHYSICIAN STATEMENT I saw and evaluated the patient. I reviewed the resident's note and discussed the case with the resident. I agree with the resident's findings and plan as documented. SUBJECTIVE: Patient is feeling better with no acute distress, no nausea or vomiting. feels hungry. Passing gas. OBJECTIVE: Vital Signs Temperature 98.4 F 01/07/19 15:00 Pulse Rate 61 01/07/19 15:00 Respiratory Rate 18 01/07/19 15:00 Blood Pressure 113/68 01/07/19 15:00 O2 Sat by Pulse Oximetry (%) 96 01/07/19 10:37 GENERAL: The patient is awake, alert, and fully oriented, in no acute distress. HEAD: Normal with no signs of trauma. ENT:oropharynx clear without exudates, moist mucous membranes. LUNGS: Breath sounds equal, CTA BL, no wheezes, no crackles, no accessory muscle use. HEART: Regular rate and rhythm, S1, S2 without murmur, rub or gallop. ABDOMEN: Soft, mild lower abdomen diffuse pain ,nondistended, active bowel sounds, no guarding, no rebound, no hepatosplenomegaly, no masses. EXTREMITIES: 2+ pulses, warm, well-perfused, no edema. CBCD Neuro: AA0x3, nfd, cn2-12 grossly in tact WBC 6.3 K/mm3 (4.0-10.0) 01/07/19 10:22 RBC 4.03 M/mm3 (3.60-5.2) 01/07/19 10:22 Hgb 11.8 GM/dL (10.7-15.3) 01/07/19 10:22 Hct 36.0 % (32.4-45.2) 01/07/19 10:22 MCV 89.3 fl (80-96) 01/07/19 10:22 MCHC 32.7 g/dl (32.0-36.0) 01/07/19 10:22 RDW 14.1 % (11.6-15.6) 01/07/19 10:22 Plt Count 216 K/MM3 (134-434) 01/07/19 10:22 MPV 9.3 fl (7.5-11.1) 01/07/19 10:22 CMP Sodium 142 mmol/L (136-145) 01/07/19 10:22 Potassium 4.0 mmol/L (3.5-5.1) 01/07/19 10:22 Chloride 109 mmol/L (98-107) H 01/07/19 10:22 Carbon Dioxide 28 mmol/L (21-32) 01/07/19 10:22 Anion Gap 5 MMOL/L (8-16) L 01/07/19 10:22 BUN 13.0 mg/dL (7-18) 01/07/19 10:22 Creatinine 0.6 mg/dL (0.55-1.3) 01/07/19 10:22 Random Glucose 89 mg/dL (74-106) 01/07/19 10:22 Calcium 8.4 mg/dL (8.5-10.1) L 01/07/19 10:22 Total Bilirubin 0.4 mg/dL (0.2-1) 01/07/19 10:22 AST 18 U/L (15-37) 01/07/19 10:22 ALT 23 U/L (13-61) 01/07/19 10:22 Alkaline Phosphatase 109 U/L (45-117) 01/07/19 10:22 Total Protein 6.0 g/dl (6.4-8.2) L 01/07/19 10:22 Albumin 3.3 g/dl (3.4-5.0) L 01/07/19 10:22 CARDIAC ENZYMES Troponin I < 0.02 ng/ml (0.00-0.05) 01/07/19 00:35 Current Medications Generic Name Dose Route Start Last Admin Trade Name Jessica PRN Reason Stop Dose Admin Acetaminophen 1,000 mg 01/07/19 07:16 Ofirmev Injection - IVPB Q6H PRN PAIN LEVEL 6-10 Amlodipine Besylate 10 mg 01/08/19 10:00 Norvasc - PO DAILY ELAYNE Sodium Chloride 1,000 mls @ 75 mls/hr 01/07/19 07:15 01/07/19 07:30 Normal Saline - IV 75 mls/hr ASDIR ELAYNE Administration Home Medications Medication Instructions Recorded Amlodipine Besylate [Norvasc -] 10 mg PO DAILY 01/07/19 CT abd/ pel: multiple dilated small bowel loops with transition point in ant RLQ. Diverticulosis. Trace pelvic free fluid. Fatty stranding. Small hiatal hernia. ASSESSMENT AND PLAN: Patient is a 68yo female with PMHx of HTN, HLD, diverticulosis presenting with abdominal pain, admitted for partial SBO. # Partial SBO improving ,passing gas , as per patient this is her 4rth episodes of SBO , was hospitalized at [facility] IVF, nPO, for now, No NGT for now, patient reports having hysterectomy in the past. #HTN : amlodipine 10mg PO daily if no vomiting DVT PPX: SCDS
[2019-01-08] MEDS: SODIUM CHLORIDE 1,000 ML IV SCH ×3 (00:47→20:39)
[2019-01-08 09:04] LABS: BASO % 0.7 % (0-2.0); EOS % 1.9 % (0-4.5); HEMATOCRIT 36.6 % (32.4-45.2); HEMOGLOBIN 12.1 GM/dL (10.7-15.3); MCH 29.2 pg (25.7-33.7); MEAN CELL VOLUME 88.4 fl (80-96); MEAN PLT VOLUME 9.8 fl (7.5-11.1); MONO % 4.5 % (3.8-10.2); NEUT % 77.9 % (42.8-82.8); PLATELET COUNT 201 K/MM3 (134-434); RBC 4.14 M/mm3 (3.60-5.2); WHITE BLOOD COUNT 5.7 K/mm3 (4.0-10.0)
[2019-01-08 09:19] LABS: BLOOD UREA NITROGEN 11.8 mg/dL (7-18); CALCIUM 8.2 mg/dL (8.5-10.1); CREATININE 0.5 mg/dL (0.55-1.3); POTASSIUM 3.5 mmol/L (3.5-5.1)
[2019-01-08] MEDS: amLODIPine BESYLATE 10 MG TABLET (FP) PO SCH (10:02)
--- NOTE | 2019-01-08 10:40 | PN ---
Progress Note (short form) - Note Progress Note: Attending Surgeon No c/o; passing flatus; no n/v Last Vital Signs Temp Pulse Resp BP Pulse Ox 98.1 F 68 18 104/69 96 01/08/19 09:28 01/08/19 09:28 01/08/19 09:28 01/08/19 09:28 01/08/19 08:48 abdo-soft; flat and non tender AXR's pending IMP: clinically resolving SBO PLAN: If todays films due not show obstruction would give clear liquids and advance as tolerated. Wilian Doherty MD FACS
--- NOTE | 2019-01-08 14:51 | PN ---
Progress Note (short form) - Note Progress Note: Patient is feeling better with no acute distress, has no pain at this time. Vital Signs Temperature 97.9 F 01/08/19 14:00 Pulse Rate 70 01/08/19 14:00 Respiratory Rate 18 01/08/19 14:00 Blood Pressure 109/68 01/08/19 14:00 O2 Sat by Pulse Oximetry (%) 96 01/08/19 08:48 GENERAL: The patient is awake, alert, and fully oriented, in no acute distress. HEAD: Normal with no signs of trauma. ENT:oropharynx clear without exudates, moist mucous membranes. LUNGS: Breath sounds equal, CTA BL, no wheezes, no crackles, no accessory muscle use. HEART: Regular rate and rhythm, S1, S2 without murmur, rub or gallop. ABDOMEN: Soft, NT, nondistended, +BS, no guarding, no rebound, no hepatosplenomegaly, no masses. EXTREMITIES: 2+ pulses, warm, well-perfused, no edema. Neuro: AA0x3, CN 2-12 grossly in tact CBCD WBC 5.7 K/mm3 (4.0-10.0) 01/08/19 07:20 RBC 4.14 M/mm3 (3.60-5.2) 01/08/19 07:20 Hgb 12.1 GM/dL (10.7-15.3) 01/08/19 07:20 Hct 36.6 % (32.4-45.2) 01/08/19 07:20 MCV 88.4 fl (80-96) 01/08/19 07:20 MCHC 33.0 g/dl (32.0-36.0) 01/08/19 07:20 RDW 14.0 % (11.6-15.6) 01/08/19 07:20 Plt Count 201 K/MM3 (134-434) 01/08/19 07:20 MPV 9.8 fl (7.5-11.1) 01/08/19 07:20 CMP Sodium 141 mmol/L (136-145) 01/08/19 07:20 Potassium 3.5 mmol/L (3.5-5.1) 01/08/19 07:20 Chloride 109 mmol/L (98-107) H 01/08/19 07:20 Carbon Dioxide 26 mmol/L (21-32) 01/08/19 07:20 Anion Gap 7 MMOL/L (8-16) L 01/08/19 07:20 BUN 11.8 mg/dL (7-18) 01/08/19 07:20 Creatinine 0.5 mg/dL (0.55-1.3) L 01/08/19 07:20 Random Glucose 71 mg/dL (74-106) L 01/08/19 07:20 Calcium 8.2 mg/dL (8.5-10.1) L 01/08/19 07:20 Total Bilirubin 0.4 mg/dL (0.2-1) 01/07/19 10:22 AST 18 U/L (15-37) 01/07/19 10:22 ALT 23 U/L (13-61) 01/07/19 10:22 Alkaline Phosphatase 109 U/L (45-117) 01/07/19 10:22 Total Protein 6.0 g/dl (6.4-8.2) L 01/07/19 10:22 Albumin 3.3 g/dl (3.4-5.0) L 01/07/19 10:22 CARDIAC ENZYMES Troponin I < 0.02 ng/ml (0.00-0.05) 01/07/19 00:35 Current Medications Generic Name Dose Route Start Last Admin Trade Name Freq PRN Reason Stop Dose Admin Acetaminophen 1,000 mg 01/07/19 07:16 Ofirmev Injection - IVPB Q6H PRN PAIN LEVEL 6-10 Amlodipine Besylate 10 mg 01/08/19 10:00 01/08/19 10:02 Norvasc - PO 10 mg DAILY ELAYNE Administration Sodium Chloride 1,000 mls @ 75 mls/hr 01/07/19 07:15 01/08/19 10:02 Normal Saline - IV 75 mls/hr ASDIR ELAYNE Administration Home Medications Medication Instructions Recorded Amlodipine Besylate [Norvasc -] 10 mg PO DAILY 01/07/19 AXR: partial SBO CT abd/ pel: multiple dilated small bowel loops with transition point in ant RLQ. Diverticulosis. Trace pelvic free fluid. Fatty stranding. Small hiatal hernia. ASSESSMENT AND PLAN: Patient is a 68yo female with PMHx of HTN, HLD, diverticulosis presenting with abdominal pain, admitted for partial SBO. # Partial SBO improving , passing gas , no BM yet , as per patient this is her 4rth episodes of SBO , was hospitalized at [facility] IVF, NPO for now, No NGT for now, patient reports having hysterectomy in the past. IV Tylenol for pain. surgery is on the case. #HTN : amlodipine 10mg PO daily if no vomiting DVT PPX: SCDS Visit type - Emergency Visit Emergency Visit: Yes ED Registration Date: 01/07/19 Care time: The patient presented to the Emergency Department on the above date and was hospitalized for further evaluation of their emergent condition. - New Patient This patient is new to me today: No - Critical Care Critical Care patient: No - Discharge Referral Referred to [facility] Med P.C.: No
[2019-01-09 09:47] VITALS: BP 119/75; PULSE 66; TEMP 98.8
[2019-01-09] MEDS: amLODIPine BESYLATE 10 MG TABLET (FP) PO SCH (09:48)
[2019-01-09] MEDS: SODIUM CHLORIDE 1,000 ML IV SCH (09:52)
--- NOTE | 2019-01-09 12:48 | PN ---
Teaching Attending Note Name of Resident: Venus Mercado ATTENDING PHYSICIAN STATEMENT I saw and evaluated the patient. I reviewed the resident's note and discussed the case with the resident. I agree with the resident's findings and plan as documented. SUBJECTIVE: Patient is feeling better , able to tolerate diet. Had a Bowel movement today. OBJECTIVE: Vital Signs Temperature 98.8 F 01/09/19 09:46 Pulse Rate 66 01/09/19 09:46 Respiratory Rate 20 01/09/19 09:46 Blood Pressure 119/75 01/09/19 09:46 O2 Sat by Pulse Oximetry (%) 96 01/08/19 21:00 GENERAL: The patient is awake, alert, and fully oriented, in no acute distress. HEAD: Normal with no signs of trauma. ENT:oropharynx clear without exudates, moist mucous membranes. LUNGS: Breath sounds equal, CTA BL, no wheezes, no crackles, no accessory muscle use. HEART: Regular rate and rhythm, S1, S2 without murmur, rub or gallop. ABDOMEN: Soft, NT, ND, +BS, no guarding, no rebound, no hepatosplenomegaly, no masses. EXTREMITIES: 2+ pulses, warm, well-perfused, no edema. Neuro: AA0x3, CN 2-12 grossly in tact CBCD WBC 5.7 K/mm3 (4.0-10.0) 01/08/19 07:20 RBC 4.14 M/mm3 (3.60-5.2) 01/08/19 07:20 Hgb 12.1 GM/dL (10.7-15.3) 01/08/19 07:20 Hct 36.6 % (32.4-45.2) 01/08/19 07:20 MCV 88.4 fl (80-96) 01/08/19 07:20 MCHC 33.0 g/dl (32.0-36.0) 01/08/19 07:20 RDW 14.0 % (11.6-15.6) 01/08/19 07:20 Plt Count 201 K/MM3 (134-434) 01/08/19 07:20 MPV 9.8 fl (7.5-11.1) 01/08/19 07:20 CMP Sodium 141 mmol/L (136-145) 01/08/19 07:20 Potassium 3.5 mmol/L (3.5-5.1) 01/08/19 07:20 Chloride 109 mmol/L (98-107) H 01/08/19 07:20 Carbon Dioxide 26 mmol/L (21-32) 01/08/19 07:20 Anion Gap 7 MMOL/L (8-16) L 01/08/19 07:20 BUN 11.8 mg/dL (7-18) 01/08/19 07:20 Creatinine 0.5 mg/dL (0.55-1.3) L 01/08/19 07:20 Random Glucose 71 mg/dL (74-106) L 01/08/19 07:20 Calcium 8.2 mg/dL (8.5-10.1) L 01/08/19 07:20 Total Bilirubin 0.4 mg/dL (0.2-1) 01/07/19 10:22 AST 18 U/L (15-37) 01/07/19 10:22 ALT 23 U/L (13-61) 01/07/19 10:22 Alkaline Phosphatase 109 U/L (45-117) 01/07/19 10:22 Total Protein 6.0 g/dl (6.4-8.2) L 01/07/19 10:22 Albumin 3.3 g/dl (3.4-5.0) L 01/07/19 10:22 CARDIAC ENZYMES Troponin I < 0.02 ng/ml (0.00-0.05) 01/07/19 00:35 Current Medications Generic Name Dose Route Start Last Admin Trade Name Titiq PRN Reason Stop Dose Admin Acetaminophen 1,000 mg 01/07/19 07:16 Ofirmev Injection - IVPB Q6H PRN PAIN LEVEL 6-10 Amlodipine Besylate 10 mg 01/08/19 10:00 01/09/19 09:48 Norvasc - PO 10 mg DAILY ELAYNE Administration Sodium Chloride 1,000 mls @ 75 mls/hr 01/07/19 07:15 01/09/19 09:52 Normal Saline - IV 75 mls/hr ASDIR ELAYNE Administration Hepatic Panel Total Bilirubin 0.4 mg/dL (0.2-1) 01/07/19 10:22 AST 18 U/L (15-37) 01/07/19 10:22 ALT 23 U/L (13-61) 01/07/19 10:22 Alkaline Phosphatase 109 U/L (45-117) 01/07/19 10:22 Albumin 3.3 g/dl (3.4-5.0) L 01/07/19 10:22 Home Medications Medication Instructions Recorded Amlodipine Besylate [Norvasc -] 10 mg PO DAILY 01/07/19 AXR: partial SBO CT abd/ pel: multiple dilated small bowel loops with transition point in ant RLQ. Diverticulosis. Trace pelvic free fluid. Fatty stranding. Small hiatal hernia. ASSESSMENT AND PLAN: Patient is a 68yo female with PMHx of HTN, HLD, diverticulosis presenting with abdominal pain, admitted for partial SBO. # Partial SBO improved , passing gas , had a BM this morning , tolerating diet, explained to the patient that she needs to stay away from carbohydartes, low fat and lactose free diet. As per patient this is her 4rth episodes of SBO , was hospitalized at [facility]. patient reports having hysterectomy in the past 20yrs ago. as per surgery, patient can be discharged . Patient needs to follow up with surgery since this the 4th episode. #HTN : amlodipine 10mg PO daily if no vomiting discharge patient home.
--- NOTE | 2019-01-09 14:47 | DS ---
Physical Exam: SUBJECTIVE: Patient seen and examined. no apparent distress. pt had a BM this morning and has been passing gas.no abdominal pain OBJECTIVE: Vital Signs Period Temp Pulse Resp BP Sys/Andrews Pulse Ox Last 24 Hr 98.4 F-98.8 F 64-66 18-20 110-119/62-75 96 PHYSICAL EXAM GENERAL: The patient is awake, alert, and fully oriented, in no acute distress. HEAD: Normal with no signs of trauma. ENT: oropharynx clear without exudates, moist mucous membranes. LUNGS: Breath sounds equal, clear to auscultation bilaterally, no wheezes, no crackles, no accessory muscle use. HEART: Regular rate and rhythm, S1, S2 without murmur, rub or gallop. ABDOMEN: Soft, nontender, nondistended, normoactive bowel sounds, no guarding, no rebound, no hepatosplenomegaly, no masses. EXTREMITIES: 2+ pulses, warm, well-perfused, no edema. SKIN: Warm, dry, normal turgor, no rashes or lesions noted. LABS CBC, BMP 01/08/19 07:20 01/08/19 07:20 CTabdomen 01/07/19Findings are suggestive of small bowel obstruction. Diverticulosis without CT evidence of diverticulitis. 6 mm right middle lobe nodule which will need follow-up as per Fleischner Society criteria. Chest Xray 01/07/19 No acute chest pathology Abdominal KUB 01/07/19Single view of the abdomen reveals retained stool in the colon with no sign of free air, organomegaly or calcifications of significance. There are some air distended loops of small bowel seen centrally. This could indicate a partial small bowel obstruction or focal small bowel obstruction. The bones and soft tissues are intact. There is contrast in the bladder. Repeat KUB 01/08/19 3 views of the abdomen reveal degenerative changes, phleboliths, no sign of free air and no sign of pneumatosis. The lung bases appear well aerated. There is a prominent heart and unfolded aorta. There is air and stool seen in the colon and there are a few air distended loops of small bowel seen centrally. This could indicate a focal ileus or partial small bowel obstruction. Correlation recommended. If symptoms persist, further imaging may be of help. HOSPITAL COURSE: Date of Admission:01/07/19 68 y.o. F PMH HTN, HLD, diverticulosis presenting with abdominal pain, admitted for PSBO. In the ED, CXR showed no acute pathology.Pt received Pepcid, zofran for nausea and vomiting. Abdominal Xray showed PSBO and CT showed multiple dilated small bowel loops with transition point in ant RLQ. Diverticulosis. Trace pelvic free fluid. Fatty stranding. Small hiatal hernia. Surgery was consulted and recommended conservative management with NPO,IVF, not NGT since patient had no more episodes of vomiting since admission or nausea. Pt eventually passed gas and had BMs with complete resolution of abdominal pain. Pt was discharged with the intention to F/u with Dr Doherty within a week. Date of Discharge: 01/09/19 Minutes to complete discharge: 35 Discharge Summary Problems reviewed: Yes Reason For Visit: SMALL BOWEL OBSTRUCTION Condition: Stable - Instructions Diet, Activity, Other Instructions: You came into the hospital because of abdominal pain with nausea and vomiting. We did scan of your abdomen which showed partial obstruction of your small intestines. We gave you pain meds and some IV fluids. You were seen by surgery while you were here. Because your symptoms improved with conservative management , please follow up with Surgery Dr Doherty in one week upon discharge. Medications: Please resume all of your home medications. have low carbohydrate diet, low fat. Follow up: Please follow up with your primary care physician within one week. Please follow up with Surgery, Dr Doherty within one week. If you begin to experience worsening abdominal pain, distention, nausea, vomiting, chest pain, shortness of breath, fevers or bleeding; please return to the Emergency Room immediately Referrals: Wilian Doherty MD [Staff Physician] - 1 Week ON STAFF,NOT [Non Staff, Medical] - 1 Week Disposition: HOME - Home Medications Comprehensive Discharge Medication List: Ambulatory Orders Amlodipine Besylate [Norvasc -] 10 mg PO DAILY 01/07/19 Problem List - Problems (1) Incidental lung nodule, > 3mm and < 8mm Code(s): R91.1 - SOLITARY PULMONARY NODULE (2) Abdominal pain Code(s): R10.9 - UNSPECIFIED ABDOMINAL PAIN Qualifiers: Abdominal location: generalized Qualified Code(s): R10.84 - Generalized abdominal pain (3) Nausea & vomiting Code(s): R11.2 - NAUSEA WITH VOMITING, UNSPECIFIED Qualifiers: Vomiting type: unspecified Vomiting Intractability: non-intractable Qualified Code(s): R11.2 - Nausea with vomiting, unspecified (4) Small bowel obstruction Code(s): K56.69 - OTHER INTESTINAL OBSTRUCTION * DO NOT USE * This patient is new to me today: No Emergency Visit: Yes ED Registration Date: 01/07/19 Care time: The patient presented to the Emergency Department on the above date and was hospitalized for further evaluation of their emergent condition. Critical Care patient: No - Discharge Referral Referred to [facility] No ATTENDING PHYSICIAN STATEMENT I saw and evaluated the patient. I reviewed the resident's note and discussed the case with the resident. I agree with the resident's findings and plan as documented. SUBJECTIVE: OBJECTIVE: ASSESSMENT AND PLAN:
== END 2019-01-09 13:48 | disposition home or self-care (01) | DRG 390 ==
LOC: JER 23:34 → JERBED 01-07 03:57 → J5S 01-07 10:09
PROVIDERS: ADMIT Internal Medicine; ATTEND Internal Medicine
DX: K56.600 Partial intestinal obstruction, unspecified as to cause (principal); I10 Essential (primary) hypertension; E78.5 Hyperlipidemia, unspecified; K57.90 Diverticulosis of intestine, part unspecified, without perforation or abscess without bleeding; R10.84 Generalized abdominal pain; D72.829 Elevated white blood cell count, unspecified; K46.9 Unspecified abdominal hernia without obstruction or gangrene
CPT/HCPCS: 36415; 71045-TC-FY; 74018-TC-FY; 74019-TC-FY; 74177-TC; 80048; 80053; 83605; 83690; 83735; 84100; 84484; 85025; 85027; 93005; 93010; 99284-25; G0008; J0131; J7030; Q2036

== ENCOUNTER 2019-10-11 05:34 | Inpatient (IN) | payer OTHER ==
[2019-10-11 05:52] VITALS: BMI 26.5
[2019-10-11] MEDS ORDERED: ACETAMINOPHEN 1000 MG/100 ML VIAL (NON FORMULARY) IVPB ONE (06:00)
[2019-10-11] MEDS ORDERED: ONDANSETRON 4 MG/2 ML VIAL IVPUSH ONE (06:00)
[2019-10-11] MEDS ORDERED: LACTATED RINGERS SOLUTION 1000 ML INFUS.BAG IV ONE (06:02)
[2019-10-11] MEDS ORDERED: ACETAMINOPHEN INJECTION 100 ML IVPB ONE (06:08)
--- NOTE | 2019-10-11 06:13 | PDOC ---
History of Present Illness - General Chief Complaint: Nausea/Vomiting Stated Complaint: VOMITING History Source: Patient - History of Present Illness Initial Comments: 10/11/19 06:03 69F w/hx HTN, HLD, multiple prior SBOs p/w acute onset N/V since 2199 yesterday. She reports x10 nbnb vomiting overnight, alongside 7/10 generalized non- radiating abdominal pain. She reports symptom onset shortly after eating dinner. She denies constipation, diarrhea. She endorses normal bowel movements after symptom onset. No sick contacts in the home. Most recent SBO 12/2018, followed by Dr. Doherty (Surgery) at that time. Past History - Medical History Allergies/Adverse Reactions: Allergies Allergy/AdvReac Type Severity Reaction Status Date / Time No Known Allergies Allergy Verified 10/11/19 05:46 Home Medications: Ambulatory Orders Amlodipine Besylate [Norvasc -] 10 mg PO DAILY 01/07/19 Atorvastatin Ca [Lipitor] 10 mg PO DAILY 10/11/19 COPD: No GI Disorders: (hx diverticulitis) HTN: Yes Hypercholesterolemia: Yes - Immunization History Immunization Up to Date: Yes - Psycho-Social/Smoking History Smoking Status: No Smoking History: Never smoked Years of Tobacco Use: 0 Have you smoked in the past 12 months: No Number of Cigarettes Smoked Daily: 0 If you are a former smoker, when did you quit?: 15 years ago Cigars Per Day: 0 Information on smoking cessation initiated: No - Substance Abuse Hx (Audit-C & DAST Scrn) How often the patient has a drink containing alcohol: Never Score: In Men: 4 or > Positive; In Women: 3 or > Positive: 0 Screen Result (Pos requires Nsg. Audit-10AR): Negative In the last yr the pt used illegal drug/Rx for NonMed reason: No Score: Yes response is considered Positive: 0 Screen Result (Positive result requires Nsg. DAST-10): Negative Review of Systems - Review of Systems Able to Perform ROS?: Yes Comments:: 10/11/19 06:13 GENERAL/CONSTITUTIONAL: No fever or chills. No weakness. HEAD, EYES, EARS, NOSE AND THROAT: No change in vision. No ear pain or discharge. No sore throat. CARDIOVASCULAR: No chest pain or shortness of breath RESPIRATORY: No cough, wheezing, or hemoptysis. GASTROINTESTINAL: Nausea, vomiting, abdominal pain. No diarrhea or constipation. GENITOURINARY: No dysuria, frequency, or change in urination. MUSCULOSKELETAL: No joint or muscle swelling or pain. No neck or back pain. SKIN: No rash NEUROLOGIC: No headache, vertigo, loss of consciousness, or change in strength/sensation. ENDOCRINE: No increased thirst. No abnormal weight change HEMATOLOGIC/LYMPHATIC: No anemia, easy bleeding, or history of blood clots. ALLERGIC/IMMUNOLOGIC: No hives or skin allergy. *Physical Exam - Vital Signs Last Vital Signs Temp Pulse Resp BP Pulse Ox 98.3 F 84 20 128/71 95 10/11/19 05:44 10/11/19 05:44 10/11/19 05:44 10/11/19 05:44 10/11/19 05:44 - Physical Exam GENERAL: Awake, alert, and fully oriented, in no acute distress HEAD: No signs of trauma, normocephalic, atraumatic EYES: PERRLA, EOMI, sclera anicteric, conjunctiva clear ENT: Auricles normal inspection, hearing grossly normal, nares patent, oropharynx clear without exudates. Moist mucosa NECK: Normal ROM, supple, no lymphadenopathy, JVD, or masses LUNGS: No distress, speaks full sentences, clear to auscultation bilaterally HEART: Regular rate and rhythm, normal S1 and S2, no murmurs, rubs or gallops, peripheral pulses normal and equal bilaterally. ABDOMEN: Diffuse mild tenderness. Soft, normoactive bowel sounds. No guarding, no rebound. No masses EXTREMITIES : Normal inspection, Normal range of motion, no edema. No clubbing or cyanosis NEUROLOGICAL: Cranial nerves II through XII grossly intact. Normal speech, normal gait, no focal sensorimotor deficits SKIN: Warm, Dry, normal turgor, no rashes or lesions noted ED Treatment Course - LABORATORY CBC & Chemistry Diagram: 10/11/19 06:20 10/11/19 06:20 - RADIOLOGY Radiology Studies Ordered: Category Date Time Status ABDOMEN & PELVIS CT WITH CONTR [CT] Stat CT Scan 10/11/19 05:58 Ordered CHEST X-RAY PORTABLE* [RAD] Stat Radiology 10/11/19 05:58 Ordered Medical Decision Making - Medical Decision Making 10/11/19 06:22 69F w/hx multiple prior SBOs, HTN, HLD p/w acute onset N/V/abdominal pain. Ddx SBO given multiple prior events, PUD, ACS, cholecystitis vs other intraabdominal pathology. Plan: CBC CMP EKG CXR Cardiac profile Lipase Lactic acid PT/INR, APTT Type and screen CT abdomen/pelvis w/contrast Dispo: Pending labs, imaging --- Patient signed out during shift change. Discharge - Discharge Information Problems reviewed: Yes Clinical Impression/Diagnosis: Abdominal pain, SBO (small bowel obstruction) - Follow up/Referral - Patient Discharge Instructions - Post Discharge Activity
--- NOTE | 2019-10-11 06:27 | PDOC ---
Attending Attestation - Resident Resident Name: Francis Heaton - ED Attending Attestation I have performed the following: I have examined & evaluated the patient, The case was reviewed & discussed with the resident, I agree w/resident's findings & plan - HPI HPI: 10/11/19 06:22 see resident hpi - Physicial Exam PE: 10/11/19 06:23 see resident exam - Medical Decision Making 10/11/19 06:27 69-year-old female with history of bowel obstruction now with abdominal pain and vomiting Labs EKG and CT scan abdomen and pelvis planned Signed out to dayshift Discharge - Discharge Information Problems reviewed: Yes Clinical Impression/Diagnosis: Abdominal pain - Follow up/Referral - Patient Discharge Instructions - Post Discharge Activity
[2019-10-11 06:48] LABS: BASO % 0.1 % (0-2.0); HEMATOCRIT 40.5 % (32.4-45.2); HEMOGLOBIN 13.3 GM/dL (10.7-15.3); LYMPH % 4.7 % (8-40); MCH 28.9 pg (25.7-33.7); MCHC 32.8 g/dl (32.0-36.0); MEAN CELL VOLUME 88.1 fl (80-96); MEAN PLT VOLUME 9.7 fl (7.5-11.1); MONO % 2.5 % (3.8-10.2); NEUT % 92.7 % (42.8-82.8); PLATELET COUNT 254 K/MM3 (134-434); RDW 13.9 % (11.6-15.6); WHITE BLOOD COUNT 8.9 K/mm3 (4.0-10.0)
[2019-10-11 06:54] LABS: PROTHROMBIN TIME (PATIENT) 11.8 SEC (9.7-13.0)
[2019-10-11 06:58] LABS: ACTIVATED PTT 30.2 SECONDS (25.2-36.5)
[2019-10-11 07:18] LABS: ALK PHOS 147 U/L (45-117); ANION GAP 8 MMOL/L (8-16); BILIRUBIN,TOTAL 0.4 mg/dL (0.2-1); BLOOD UREA NITROGEN 16.7 mg/dL (7-18); CALCIUM 8.9 mg/dL (8.5-10.1); CHLORIDE 106 mmol/L (98-107); CO2 26 mmol/L (21-32); CREATININE 0.6 mg/dL (0.55-1.3); GLUCOSE,RANDOM 159 mg/dL (74-106); LIPASE 180 U/L (73-393); POTASSIUM 3.9 mmol/L (3.5-5.1); SGOT/AST 31 U/L (15-37); SGPT/ALT 31 U/L (13-61); SODIUM 140 mmol/L (136-145); TOT PROT 7.4 g/dl (6.4-8.2)
--- NOTE | 2019-10-11 07:25 | PDOC ---
*Physical Exam - Vital Signs Last Vital Signs Temp Pulse Resp BP Pulse Ox 98.3 F 84 20 128/71 95 10/11/19 05:44 10/11/19 05:44 10/11/19 05:44 10/11/19 05:44 10/11/19 05:44 ED Treatment Course - LABORATORY CBC & Chemistry Diagram: 10/11/19 06:20 10/11/19 06:20 - ADDITIONAL ORDERS Additional order review: Laboratory Results 10/11/19 10/11/19 10/11/19 06:44 06:20 06:20 PT with INR INR PTT (Actin FS) Sodium 140 Potassium 3.9 Chloride 106 Carbon Dioxide 26 Anion Gap 8 BUN 16.7 Creatinine 0.6 Est GFR (CKD-EPI)AfAm 106.28 Est GFR (CKD-EPI)NonAf 91.70 POC Glucometer 154 Random Glucose 159 H Lactic Acid 1.2 Calcium 8.9 Total Bilirubin 0.4 AST 31 ALT 31 Alkaline Phosphatase 147 H Creatine Kinase 137 Troponin I < 0.02 Total Protein 7.4 Albumin 4.0 Lipase 180 10/11/19 06:20 PT with INR 11.80 INR 1.00 PTT (Actin FS) 30.2 Sodium Potassium Chloride Carbon Dioxide Anion Gap BUN Creatinine Est GFR (CKD-EPI)AfAm Est GFR (CKD-EPI)NonAf POC Glucometer Random Glucose Lactic Acid Calcium Total Bilirubin AST ALT Alkaline Phosphatase Creatine Kinase Troponin I Total Protein Albumin Lipase 10/11/19 10/11/19 06:44 06:20 RBC 4.60 MCV 88.1 MCHC 32.8 RDW 13.9 MPV 9.7 Neutrophils % 92.7 H Lymphocytes % 4.7 L D Monocytes % 2.5 L Eosinophils % 0.0 D Basophils % 0.1 POC Glucometer 154 - Medications Given in the ED: ED Medications Discontinued Medications Generic Name Dose Route Start Last Admin Trade Name Freq PRN Reason Stop Dose Admin Acetaminophen 1,000 mg 10/11/19 06:00 10/11/19 06:29 Ofirmev Injection - IVPB 10/11/19 06:01 1,000 mg ONCE ONE Administration Lactated Ringer's 1,000 ml 10/11/19 06:02 10/11/19 06:29 Lactated Ringers Solution IV 10/11/19 06:03 1,000 ml ONCE ONE Administration Ondansetron HCl 4 mg 10/11/19 06:00 10/11/19 06:29 Zofran Injection IVPUSH 10/11/19 06:01 4 mg ONCE ONE Administration Medical Decision Making - Medical Decision Making 10/11/19 07:19 s/o from night team: 69F w/hx multiple prior SBOs, HTN, HLD p/w acute onset N/V/abdominal pain. Ddx SBO given multiple prior events, PUD, ACS, cholecystitis vs other intraabdominal pathology. Plan: CBC CMP EKG CXR Cardiac profile Lipase Lactic acid PT/INR, APTT Type and screen CT abdomen/pelvis w/contrast Dispo: Pending labs, imaging EKG NSR, no signs of acute ischemia, vent rate 65, QT C 447 Pt given zofran and Tylenol with relief of pain, no vomiting in the ED. Pending CMP for CT scan IV contrast 10/11/19 08:45 CT shows SBO with transition point in the Pelvis CARMEN García present in the ED, case discussed and patient evaluated. CARMEN García contacted Dr. Doherty contacted and states the leather production machine operator Surgeon will see this patient. Contacted Dr. Winston, case discussed in full and he will evaluate the patient 10/11/19 08:52 Pt admitted to [facility] Discharge - Discharge Information Problems reviewed: Yes Clinical Impression/Diagnosis: Abdominal pain, SBO (small bowel obstruction) - Admission Yes - Follow up/Referral - Patient Discharge Instructions - Post Discharge Activity
--- NOTE | 2019-10-11 09:04 | CONSULT ---
- Consultation REQUESTING PROVIDER: General Surgery - Fahad Winston CONSULT REQUEST: We have been asked to surgically evaluate this patient for abd pain w/ associated n/v [facility] Hospitalist: Nabil Elizondo HPI: Called to eve 69 y.o. F w/ PMHx as noted below. Comes to [facility] ED for further evaluation of her abd pain with associated nausea/vomiting (nbnb) x10 yesterday. Looking back at her medical chart, patient has multiple visits for SBO (all managed conservatively). Patient well known to General Surgery Service as we were consulted for same problem 01/06/2020 (Dr. Doherty). Yesterday, patient c/o acute onset postprandial pain/n/v. States she is passing flatus. Her last BM was yesterday morning (formed). While in the ED patient had the following imaging exam: ABD CT: Hiatal hernia (known). SB dilation with zone of transition in the pelvis (similar findings noted on previous CT scan). Distal SB unremarkable. No appendicitis. No free fluid. States she doesn't remember when her last colonoscopy was. Currently, denies n/v/f/c, CP, palpitations, SOB, JOSHUA. Denies dysuria, hematuria, melena or hematochazia. PMHx: HTN, HLD, Diverticulosis/itis, SBO (resolved w/ conservative management 01/06/2020) PSHx: Hysterectomy. Section Home Medications Lipitor 10 mg PO HS Norvasc 10 mg PO Daily Allergies: NKDA ROS CONSTITUTIONAL: Absent: diaphoresis, generalized weakness, malaise, loss of appetite, weight change CARDIOVASCULAR: Absent: syncope, irregular heart rate, lightheadedness, peripheral edema RESPIRATORY: Absent: cough, wheezing, stridor, hemoptysis GASTROINTESTINAL: see hpi GENITOURINARY: Absent: frequency, urgency, hesitancy, flank pain MUSCULOSKELETAL: Absent: myalgia, arthralgia, joint swelling, back pain, neck pain SKIN: Absent: rash, itching, pallor HEMATOLOGIC/IMMUNOLOGIC: Absent: easy bleeding, easy bruising, lymphadenopathy NEUROLOGIC: Absent: headache, focal weakness, paresthesias, dizziness, unsteady gait, seizure, mental status changes, PSYCHIATRIC: Absent: anxiety, depression, suicidal or homicidal ideation, hallucinations. PE: GENERAL: a&o. nad HEAD: nc. at EYES: PERRL, sclera anicteric, conjunctiva clear. NECK: Normal ROM, supple without lymphadenopathy, JVD, or masses. LUNGS: Unlabored respirations on RA. CTA bilat HEART: RRR ABD: Softly distended. Non-tender. Hypoactive bowel sounds in all quadrants. No guarding, no rebound, no masses. No organomegaly. No palpable hernias. Old Pfannenstiel incision well healed. MUSCULOSKELETAL: No CVAT bilat UE: 2+ pulses, warm, well-perfused. No cyanosis. Cap refill <2 seconds. No peripheral edema. LE: 2+ pulses, warm, well-perfused. No calf tenderness. No peripheral edema. PSYCH: Cooperative. Good eye contact. Appropriate mood and affect. Last Vital Signs Temp Pulse Resp BP Pulse Ox 98.3 F 84 20 128/71 95 10/11/19 05:44 10/11/19 05:44 10/11/19 05:44 10/11/19 05:44 10/11/19 05:44 CBC, BMP 10/11/19 06:20 10/11/19 06:20 INR, PTT INR 1.00 (0.83-1.09) 10/11/19 06:20 Hepatic Panel Total Bilirubin 0.4 mg/dL (0.2-1) 10/11/19 06:20 AST 31 U/L (15-37) 10/11/19 06:20 ALT 31 U/L (13-61) 10/11/19 06:20 Alkaline Phosphatase 147 U/L (45-117) H 10/11/19 06:20 Albumin 4.0 g/dl (3.4-5.0) 10/11/19 06:20 Blood Type Blood Type O POSITIVE 10/11/19 06:20 A/P: 69 yo female admitted with abd pain w/ nausea & vomiting (nbnb). ABD CT identified SBO with zone of transition located in pelvis. No free air. No leukocytosis. Non-toxic appearing. Resting comfortably without complaint. - Admit to [facility] - Serial AXRs - Serial ABD exams - Recommend NGT if n/v resumes - Antiemetics - GI PPx - DVT PPx - NPO - IVF - Replete elytes PRN - OOB and ambulate - Conservative management at this time - Surgery Team to cont following Above plan discussed with Dr. Winston and agrees Problem List - Problems (1) Small bowel obstruction Code(s): K56.69 - OTHER INTESTINAL OBSTRUCTION * DO NOT USE * (2) Abdominal pain Code(s): R10.9 - UNSPECIFIED ABDOMINAL PAIN (3) HLD (hyperlipidemia) Code(s): E78.5 - HYPERLIPIDEMIA, UNSPECIFIED (4) HTN (hypertension) Code(s): I10 - ESSENTIAL (PRIMARY) HYPERTENSION Visit type - Case Type Case Type: ED Admission - Emergency Emergency Visit: Yes Care time: The patient presented to the Emergency Department on the above date and was hospitalized for further evaluation of their emergent condition. - New patient This patient is new to me today: Yes Date on this admission: 10/11/19
[2019-10-11 09:26] LABS: ANISOCYTOSIS 0; MACROCYTOSIS 0; PLATELET ESTIMATE NORMAL
--- NOTE | 2019-10-11 09:51 | HP ---
Admitting History and Physical - Admission Chief Complaint: Abd Pain, Nausea, vomiting History of Present Illness: History obtained with photographic double #[id number] 69-year-old female with a past medical history of hypertension, hyperlipidemia, and diverticulosis/diverticulitis, SBO resolved with conservative management in December of last year, presents for abdominal pain and nausea vomiting that started last night. Patient has had multiple admissions for SBO that have all been managed conservatively. Patient reports she is passing flatus and had a BM yesterday morning. She denies fever chills shortness of breath, chest pain, dysuria, confusion, cough. In the ED patient is hemodynamically stable. Labs notable for mildly elevated absolute neutrophil count. CT abdomen pelvis shows small bowel obstruction with a transition point within the pelvis. Patient admitted to medicine for SBO. Surgery on board. History Source: Patient - Past Medical History Cardiovascular: Yes: HTN - Past Surgical History Past Surgical History: Yes: , Hysterectomy - Smoking History Smoking history: Never smoked Have you smoked in the past 12 months: No Aproximately how many cigarettes per day: 0 If you are a former smoker, when did you quit?: 15 years ago - Alcohol/Substance Use Hx Alcohol Use: No - Social History ADL: Independent History of Recent Travel: No Home Medications - Allergies Allergies/Adverse Reactions: Allergies Allergy/AdvReac Type Severity Reaction Status Date / Time No Known Allergies Allergy Verified 10/11/19 05:46 - Home Medications Home Medications: Ambulatory Orders Amlodipine Besylate [Norvasc -] 10 mg PO DAILY 01/07/19 Review of Systems Findings/Remarks: 10 Point ROS negative except for HPI Physical Examination Vital Signs: Vital Signs Temperature 98.3 F 10/11/19 05:44 Pulse Rate 84 10/11/19 05:44 Respiratory Rate 20 10/11/19 05:44 Blood Pressure 128/71 10/11/19 05:44 O2 Sat by Pulse Oximetry (%) 95 10/11/19 05:44 Constitutional: Yes: Well Nourished, No Distress Eyes: Yes: WNL HENT: Yes: WNL Cardiovascular: Yes: WNL, Regular Rate and Rhythm Respiratory: Yes: WNL, CTA Bilaterally Gastrointestinal: Yes: Normal Bowel Sounds, Soft, Abdomen, Obese, Tenderness, Epigastrium Extremities: Yes: WNL Edema: No Peripheral Pulses WNL: Yes Neurological: Yes: Alert, Oriented, Cran Nerves II-XII Intact ...Motor Strength: WNL Psychiatric: Yes: WNL Labs: CBC, BMP 10/11/19 06:20 10/11/19 06:20 Imaging - Results X-ray: Report Reviewed Cat Scan: Report Reviewed Problem List - Problems (1) Small bowel obstruction Code(s): K56.69 - OTHER INTESTINAL OBSTRUCTION * DO NOT USE * (2) Nausea & vomiting Code(s): R11.2 - NAUSEA WITH VOMITING, UNSPECIFIED Qualifiers: Vomiting type: unspecified Vomiting Intractability: non-intractable Qualified Code(s): R11.2 - Nausea with vomiting, unspecified (3) HTN (hypertension) Code(s): I10 - ESSENTIAL (PRIMARY) HYPERTENSION Assessment/Plan 69-year-old female with history of hypertension, hyperlipidemia, multiple episo melody of small bowel obstruction previously managed conservatively with success presents with a small bowel obstruction. #Small bowel obstruction N.p.o. IV fluids Dr. Winston to see patient Conservative management for now Daily KUBs #Hypertension Hold home amlodipine in setting of n.p.o. DVTppx: Lovenox Diet: NPO Dispo: admit to med/surg Visit type - Emergency Visit Emergency Visit: Yes ED Registration Date: 10/11/19 Care time: The patient presented to the Emergency Department on the above date and was hospitalized for further evaluation of their emergent condition. - New Patient This patient is new to me today: Yes Date on this admission: 10/11/19 - Critical Care Critical Care patient: No
[2019-10-11] MEDS ORDERED: KETOROLAC TROMETHAMINE 15 MG/ML VIAL IVPUSH PRN (09:54)
[2019-10-11] MEDS ORDERED: KETOROLAC TROMETHAMINE 15 MG/ML VIAL ONE (10:08)
[2019-10-11] MEDS: ENOXAPARIN NA (PORCINE) 40 MG/0.4 ML DISP.SYRIN SQ SCH (10:31)
[2019-10-11] MEDS: DEXTROSE 5%-0.45% SALINE 1,000 ML IV SCH (11:00)
[2019-10-11 11:32] LABS: PH,URINE 8.5 (5.0-8.0); URINE APPEARANCE CLEAR; URINE BILIRUBIN NEGATIVE (NEGATIVE); URINE COLOR YELLOW; URINE GLUCOSE (UA) NEGATIVE (NEGATIVE); URINE KETONE NEGATIVE (NEGATIVE); URINE LEUK ESTERASE NEGATIVE (NEGATIVE); URINE NITRITE NEGATIVE (NEGATIVE); URINE PROTEIN NEGATIVE (NEGATIVE); URINE UROBILINOGEN 0.2 mg/dL (0.2-1.0)
--- NOTE | 2019-10-11 12:27 | EKG ---
Test Reason : Blood Pressure : / mmHG Vent. Rate : 065 BPM Atrial Rate : 065 BPM P-R Int : 144 ms QRS Dur : 092 ms QT Int : 430 ms P-R-T Axes : 049 032 044 degrees QTc Int : 447 ms NORMAL SINUS RHYTHM NORMAL ECG WHEN COMPARED WITH ECG OF 07-JAN-2019 00:18, NO SIGNIFICANT CHANGE WAS FOUND Confirmed by Conor Garibay MD ([id number]) on 10/11/2019 12:26:54 PM Referred By: Confirmed By:Conor Garibay MD
[2019-10-12] MEDS: DEXTROSE 5%-0.45% SALINE 1,000 ML IV SCH (09:26)
--- NOTE | 2019-10-12 09:27 | PN ---
Progress Note (short form) - Note Progress Note: GENERAL SURGERY 69 yo female admitted with abd pain w/ nausea & vomiting (nbnb). ABD CT identified SBO with zone of transition located in pelvis. No free air. Multiple previous admissions for same problem. No leukocytosis. Non-toxic appearing. Resting comfortably without complaint. States she is passing flatus. Denies n/v/f/c AVSS. Afebrile Gen: nad ABD: soft. nt. nd. LE: all compartments soft, nt Plan - f/u KUB this morning. - Possibly start clears pending results of imaging - oob and ambulate - DVT ppx - Cont conservative mngmnt Abov eplan discussed with Dr. Doherty and agrees Problem List - Problems (1) Small bowel obstruction Code(s): K56.69 - OTHER INTESTINAL OBSTRUCTION * DO NOT USE * (2) Abdominal pain Code(s): R10.9 - UNSPECIFIED ABDOMINAL PAIN (3) HLD (hyperlipidemia) Code(s): E78.5 - HYPERLIPIDEMIA, UNSPECIFIED (4) HTN (hypertension) Code(s): I10 - ESSENTIAL (PRIMARY) HYPERTENSION
[2019-10-12] MEDS: ENOXAPARIN NA (PORCINE) 40 MG/0.4 ML DISP.SYRIN SQ SCH (09:43)
[2019-10-12 10:11] LABS: BASO % 0.6 % (0-2.0); EOS % 1.8 % (0-4.5); HEMATOCRIT 38.1 % (32.4-45.2); HEMOGLOBIN 12.5 GM/dL (10.7-15.3); LYMPH % 33.5 % (8-40); MCH 29.3 pg (25.7-33.7); MCHC 32.8 g/dl (32.0-36.0); MEAN CELL VOLUME 89.4 fl (80-96); MEAN PLT VOLUME 10.1 fl (7.5-11.1); MONO % 8.8 % (3.8-10.2); NEUT % 55.3 % (42.8-82.8); PLATELET COUNT 213 K/MM3 (134-434); RBC 4.27 M/mm3 (3.60-5.2); RDW 14.1 % (11.6-15.6); WHITE BLOOD COUNT 4.6 K/mm3 (4.0-10.0)
[2019-10-12 10:30] LABS: ALBUMIN 3.2 g/dl (3.4-5.0); BILIRUBIN,TOTAL 0.6 mg/dL (0.2-1); BLOOD UREA NITROGEN 8.3 mg/dL (7-18); CALCIUM 8.5 mg/dL (8.5-10.1); CREATININE 0.6 mg/dL (0.55-1.3); POTASSIUM 3.6 mmol/L (3.5-5.1); TOT PROT 6.1 g/dl (6.4-8.2)
--- NOTE | 2019-10-12 15:45 | PN ---
Teaching Attending Note Name of Resident: Hammad Montanez ATTENDING PHYSICIAN STATEMENT I saw and evaluated the patient. I reviewed the resident's note and discussed the case with the resident. I agree with the resident's findings and plan as documented. SUBJECTIVE: Abdominal pain resolved. No nausea/vomiting. Passed BM. No melena/hematochezia. OBJECTIVE: Afebrile, Hemodynamically Stable. Last Vital Signs Temp Pulse Resp BP Pulse Ox 98.4 F 56 L 18 123/73 98 10/12/19 14:35 10/12/19 14:35 10/12/19 14:35 10/12/19 14:35 10/12/19 10:00 HEENT - Atraumatic, Normocephalic. Heart - S1, S2, RRR Lungs - clear to auscultation Abdomen - Soft, non-tender. Bowel Sounds normal Extremities - no edema, no calf tenderness. Neuro - AAO x 3. Tone/Power normal all extremities. Laboratory Results - last 24 hr 10/12/19 10/12/19 08:45 08:45 WBC 4.6 RBC 4.27 Hgb 12.5 Hct 38.1 MCV 89.4 MCH 29.3 MCHC 32.8 RDW 14.1 Plt Count 213 MPV 10.1 Absolute Neuts (auto) 2.5 Neutrophils % 55.3 D Lymphocytes % 33.5 D Monocytes % 8.8 D Eosinophils % 1.8 D Basophils % 0.6 D Nucleated RBC % 0 Sodium 140 Potassium 3.6 Chloride 107 Carbon Dioxide 28 Anion Gap 4 L BUN 8.3 Creatinine 0.6 Est GFR (CKD-EPI)AfAm 106.28 Est GFR (CKD-EPI)NonAf 91.70 Random Glucose 109 H Calcium 8.5 Total Bilirubin 0.6 AST 18 ALT 22 Alkaline Phosphatase 113 Total Protein 6.1 L Albumin 3.2 L Current Medications Generic Name Dose Route Start Last Admin Trade Name Freq PRN Reason Stop Dose Admin Enoxaparin Sodium 40 mg 10/11/19 10:10/12/19 09:43 Lovenox - SQ 40 mg DAILY ELAYNE Administration Dextrose/Sodium Chloride 1,000 mls @ 100 mls/hr 10/11/19 10:00 10/12/19 09:26 D5-1/2ns - IV 100 mls/hr ASDIR ELAYNE Administration Ketorolac Tromethamine 15 mg 10/11/19 09:54 Toradol Injection - IVPUSH 10/16/19 09:53 Q6H PRN PAIN LEVEL 6-10 Home Medications Medication Instructions Recorded Amlodipine Besylate [Norvasc -] 10 mg PO DAILY 01/07/19 Atorvastatin Ca [Lipitor] 10 mg PO DAILY 10/11/19 ASSESSMENT AND PLAN: 69 year old female with history of HTN. HLD, Diverticulosis/diverticulitis, SBO resolved with conservative management in December of last year, presents for abdominal pain and nausea/vomiting that started last night, found to have SBO once again. 1. Acute SBO - confirmed on CT A/P Improving with conservative management NPO/IV fluids. Passed BM Awaiting follow up AXR report (radiology contacted) and trial of clears. 2. HTN - normally on Norvasc, held currently. 3. HLD - normally on Statin, held currently. DVT Px - Lovenox SQ
[2019-10-12] MEDS ORDERED: DEXTROSE 5%-0.45% SALINE 1,000 ML IV SCH (15:58)
--- NOTE | 2019-10-12 17:59 | PN ---
Physical Exam: SUBJECTIVE: 69 year old female patient with past medical history of HTN, HLD, diverticulosis/diverticulitis and previous SBO in december. Patient seen and examined at bedside. Patient had her first bowel movement since being admitted. Patient denied fever/chills, nausea, vomiting, or blood in stool. ROS: as per above OBJECTIVE: Vital Signs Period Temp Pulse Resp BP Sys/Andrews Pulse Ox Last 24 Hr 97.4 F-98.4 F 56-68 18-20 110-126/60-77 98-98 GENERAL: The patient is awake, alert, and fully oriented, in no acute distress. HEAD: Normal with no signs of trauma. EYES: Extraocular movements intact. No ptosis. ENT: Ears normal, nares patent. NECK: Trachea midline, full range of motion, supple. LUNGS: Breath sounds equal, clear to auscultation bilaterally, no wheezes, no crackles, no accessory muscle use. HEART: Regular rate and rhythm, S1, S2 without murmur, rub or gallop. ABDOMEN: Soft, nontender, nondistended, normoactive bowel sounds, no guarding, no rebound, no masses. EXTREMITIES: 2+ pulses, warm, well-perfused, no edema. NEUROLOGICAL: Normal speech, gait not observed. PSYCH: Normal mood, normal affect. SKIN: Warm, dry, normal turgor, no rashes or lesions noted Laboratory Results - last 24 hr 10/12/19 10/12/19 08:45 08:45 WBC 4.6 RBC 4.27 Hgb 12.5 Hct 38.1 MCV 89.4 MCH 29.3 MCHC 32.8 RDW 14.1 Plt Count 213 MPV 10.1 Absolute Neuts (auto) 2.5 Neutrophils % 55.3 D Lymphocytes % 33.5 D Monocytes % 8.8 D Eosinophils % 1.8 D Basophils % 0.6 D Nucleated RBC % 0 Sodium 140 Potassium 3.6 Chloride 107 Carbon Dioxide 28 Anion Gap 4 L BUN 8.3 Creatinine 0.6 Est GFR (CKD-EPI)AfAm 106.28 Est GFR (CKD-EPI)NonAf 91.70 Random Glucose 109 H Calcium 8.5 Total Bilirubin 0.6 AST 18 ALT 22 Alkaline Phosphatase 113 Total Protein 6.1 L Albumin 3.2 L Active Medications Generic Name Dose Route Start Last Admin Trade Name Freq PRN Reason Stop Dose Admin Enoxaparin Sodium 40 mg 10/11/19 10:00 10/12/19 09:43 Lovenox - SQ 40 mg DAILY ELAYNE Administration Dextrose/Sodium Chloride 1,000 mls @ 50 mls/hr 10/12/19 15:58 10/12/19 17:48 D5-1/2ns - IV 50 mls/hr ASDIR ELAYNE Administration Ketorolac Tromethamine 15 mg 10/11/19 09:54 Toradol Injection - IVPUSH 10/16/19 09:53 Q6H PRN PAIN LEVEL 6-10 ASSESSMENT/PLAN: 69 year old female patient with past medical history of HTN, HLD, diverticulosis/diverticulitis and previous SBO in december. 1. Acute SBO - CT showed a SBO - Patient had a first bowel movement with no blood in stool per patient - On diet of clears 2. HTN - Norvasc 3. HLD - Statin Visit type - Emergency Visit Emergency Visit: Yes ED Registration Date: 10/11/19 Care time: The patient presented to the Emergency Department on the above date and was hospitalized for further evaluation of their emergent condition. - New Patient This patient is new to me today: Yes Date on this admission: 10/14/19 - Critical Care Critical Care patient: No - Discharge Referral Referred to [facility] Med [facility] No ATTENDING PHYSICIAN STATEMENT I saw and evaluated the patient. I reviewed the resident's note and discussed the case with the resident. I agree with the resident's findings and plan as documented. SUBJECTIVE: OBJECTIVE: ASSESSMENT AND PLAN:
--- NOTE | 2019-10-13 07:40 | PN ---
Progress Note (short form) - Note Progress Note: GENERAL SURGERY 69 yo female admitted with abd pain w/ nausea & vomiting (nbnb). ABD CT identified SBO with zone of transition located in pelvis. No free air. Multiple previous admissions for same problem. No leukocytosis. Non-toxic appearing. Resting comfortably without complaint. States she is passing flatus and had solid BM last night. She is ambulating without assistance. Tolerating PO clears. Denies n/v/f/c AVSS. Afebrile Gen: nad ABD: soft. nt. nd. LE: all compartments soft, nt Problem List - Problems (1) Small bowel obstruction Assessment/Plan: 69 yo female admitted with recurrent SBO which has resolved with conservative management. She is passing flatus and having formed BMs. Tolerating clears. Advance diet to regular Can dc home today if tolerates. Code(s): K56.69 - OTHER INTESTINAL OBSTRUCTION * DO NOT USE * (2) Abdominal pain Code(s): R10.9 - UNSPECIFIED ABDOMINAL PAIN (3) HLD (hyperlipidemia) Code(s): E78.5 - HYPERLIPIDEMIA, UNSPECIFIED (4) HTN (hypertension) Code(s): I10 - ESSENTIAL (PRIMARY) HYPERTENSION
[2019-10-13 08:35] VITALS: PULSE 63
[2019-10-13] MEDS: ENOXAPARIN NA (PORCINE) 40 MG/0.4 ML DISP.SYRIN SQ SCH (09:45)
[2019-10-13 14:30] VITALS: BP 124/74; TEMP 99
--- NOTE | 2019-10-13 16:30 | DS ---
Physical Exam: SUBJECTIVE: 69 year old female patient with past medical history of HTN, HLD, diverticulosis/diverticulitis, and a previous SBO in december, who presented with nausea, 10 non-billious vomiting, and abdominal pain, who was found to have an SBO on imaging. Patient seen and examined at bedside. Patient had no bowel movement since yesterday. Patient is tolerating clears diet. Patient denied fever/chills, nausea, vomiting, or abdominal pain. ROS: as above in HPI OBJECTIVE: Vital Signs Period Temp Pulse Resp BP Sys/Andrews Pulse Ox Last 24 Hr 96.8 F-99.0 F 57-63 18-18 119-135/68-80 93-98 PHYSICAL EXAM GENERAL: The patient is awake, alert, and fully oriented, in no acute distress. HEAD: Normal with no signs of trauma. EYES: Extraocular movements intact. ENT: Ears normal, nares patent, moist mucous membranes. NECK: Trachea midline, full range of motion, supple. LUNGS: Breath sounds equal, clear to auscultation bilaterally, no wheezes, no crackles, no accessory muscle use. HEART: Regular rate and rhythm, S1, S2 without murmur, rub or gallop. ABDOMEN: Soft, nontender, nondistended, normoactive bowel sounds, no guarding, no rebound, no masses. EXTREMITIES: 2+ pulses, warm, well-perfused, no edema. NEUROLOGICAL: Normal speech, gait not observed. PSYCH: Normal mood, normal affect. SKIN: Warm, dry, normal turgor, no rashes or lesions noted. LABS Laboratory Results - last 24 hr 10/11/19 10:30 COVID-19 (HAIR) Not detected HOSPITAL COURSE: Date of Admission:10/11/19 69 year old female patient with past medical history of HTN, HLD, diverticulosis/diverticulitis, and a previous SBO in december 2018 that resolved with conservative management, who presented with nausea, 10 times of non-billious vomiting, and abdominal pain, and was found to have an SBO on CT A/P. 1. Small Bowel Obstruction confirmed on CT A/P - The patient received conservative management for her SBO during her hospital course with resolution of her pain and symptoms. - Patient has had previous SBO's that were treated with conservative management - Patient has a past surgical history of a and hysterectomy, which may be a potential etiology for her SBO's. Date of Discharge: 10/13/19 Minutes to complete discharge: 37 Discharge Summary Problems reviewed: Yes Reason For Visit: SMALL BOWEL OBSTRUCTION Condition: Good - Instructions Diet, Activity, Other Instructions: In Italian: You were admitted to the hospital for nausea, vomiting and abdominal pain. While you were in the hospital, you were evaluated with lab work, blood work, imaging including a CAT scan of your stomach and x rays of your chest. We found that your symptoms were caused by an obstruction in your intestines. We treated you with fluids and your symptoms self resolved. Recommendations: To prevent future reoccurrence of your symptoms, please ensure you maintain adequate hydration and diet. Imaging Findings: While you were here, your imaging revealed some abnormalities including a hiatal hernia with the stomach, diverticulosis with the colon, and splenic calcifications. You will need to follow up with the surgeon and nougat candy maker helper for these findings. Follow ups: Please continue all your medications as prescribed Please follow up with your primary care physician, or the one we have provided you with, within 1 week. Please follow up with your surgeon, Dr. Fahad Winston, within 1 week Please follow up with the nougat candy maker helper, Dr. Velasquez, within 1 week, you will likely need a colonoscopy and evaluation for recurrent small bowel obstruction. Return to the emergency room, if you experience any worsening of your symptoms, chest pain, abdominal pain, or any worsening of your condition. En Espaol: Fue ingresado en el hospital por nuseas, vmitos y dolor abdominal.Mientras estaba en el hospital, se le evalu con anlisis de laboratorio, anlisis de jcarlos, imgenes que incluyen calvin tomografa computarizada del estmago y radiografas del trax.Encontramos que susanne sntomas fueron causados por calvin obstruccin en los intestinos.Lo tratamos con lquidos y susanne sntomas se resolvieron por s mismos. Recomendaciones: Para evitar que vuelvan a ocurrir los sntomas en el futuro, asegrese de mantener calvin hidratacin y calvin dieta adecuadas. 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 Seguimiento: Por favor, contine con todos susanne medicamentos segn lo prescrito Por favor, gadiel un seguimiento con gonzalez mdico de atencin primaria, o el que le hemos proporcionado, dentro de 1 semana.Por favor, gadiel un seguimiento con gonzalez cirujano, Dr. Fahad Winston, dentro de 1 semana Regrese a la triny de emergencias, si experimenta algn empeoramiento de susanne sntomas, dolor en el pecho, dolor abdominal o cualquier empeoramiento de gonzalez condicin. Referrals: Avery Ron MD [Staff Physician] - 1 Week Tong Velasquez MD [Staff Physician] - 1 Week (routine colonoscopy evaluation for recurrent small bowel obstruction.) Fahad Winston [Staff Physician] - 1 Week Disposition: HOME - Home Medications Comprehensive Discharge Medication List: Ambulatory Orders Amlodipine Besylate [Norvasc -] 10 mg PO DAILY 01/07/19 Atorvastatin Ca [Lipitor] 10 mg PO DAILY 10/11/19 This patient is new to me today: No Emergency Visit: Yes ED Registration Date: 10/11/19 Care time: The patient presented to the Emergency Department on the above date and was hospitalized for further evaluation of their emergent condition. Critical Care patient: No - Discharge Referral Referred to [facility] Med [facility] No ATTENDING PHYSICIAN STATEMENT I saw and evaluated the patient. I reviewed the resident's note and discussed the case with the resident. I agree with the resident's findings and plan as documented. SUBJECTIVE: OBJECTIVE: ASSESSMENT AND PLAN:
--- NOTE | 2019-10-13 18:02 | PN ---
Teaching Attending Note Name of Resident: Hammad Montanez ATTENDING PHYSICIAN STATEMENT I saw and evaluated the patient. I reviewed the resident's note and discussed the case with the resident. I agree with the resident's findings and plan as documented. SUBJECTIVE: Abdominal pain completely resolved. No nausea/vomiting. Passed BM yesterday. tolerating clears. OBJECTIVE: Afebrile, Hemodynamically Stable. Last Vital Signs Temp Pulse Resp BP Pulse Ox 99.0 F 63 18 124/74 93 L 10/13/19 14:29 10/13/19 14:29 10/13/19 14:29 10/13/19 14:29 10/13/19 08:57 Heart - S1, S2, RRR Lungs - clear to auscultation Abdomen - Soft, non-tender. Bowel Sounds normal Extremities - no edema, no calf tenderness. Neuro - AAO x 3. Tone/Power normal all extremities. Laboratory Results - last 24 hr 10/11/19 10:30 COVID-19 (HARI) Not detected Current Medications Generic Name Dose Route Start Last Admin Trade Name Freq PRN Reason Stop Dose Admin Enoxaparin Sodium 40 mg 10/11/19 10:00 10/13/19 09:45 Lovenox - SQ 40 mg DAILY ELAYNE Administration Dextrose/Sodium Chloride 1,000 mls @ 50 mls/hr 10/12/19 15:58 10/12/19 17:48 D5-1/2ns - IV 50 mls/hr ASDIR ELAYNE Administration Ketorolac Tromethamine 15 mg 10/11/19 09:54 Toradol Injection - IVPUSH 10/16/19 09:53 Q6H PRN PAIN LEVEL 6-10 Discharge Medications Medication Instructions Recorded Amlodipine Besylate [Norvasc -] 10 mg PO DAILY 01/07/19 Atorvastatin Ca [Lipitor] 10 mg PO DAILY 10/11/19 ASSESSMENT AND PLAN: 69 year old female with history of HTN, HLD, diverticulosis/diverticulitis, SBO resolved with conservative management in December of last year, presents for abdominal pain and nausea/vomiting that started last night, found to have SBO once again. 1. Acute SBO - confirmed on CT A/P - now resolved. Improved with conservative management Tolerating clears Passed BM Repeat AXR does not show evidence of obstruction. If tolerates advanced diet, can be discharged today with surgery follow up. 2. HTN - resume Norvasc 3. HLD - resume Statin Medically optimized for discharge with Surgery follow up as out-patient.
== END 2019-10-13 17:00 | disposition home or self-care (01) | DRG 390 ==
LOC: JER 05:34 → JERBED 08:53 → J6S 12:25
PROVIDERS: ADMIT Internal Medicine
DX: K56.609 Unspecified intestinal obstruction, unspecified as to partial versus complete obstruction (principal); I10 Essential (primary) hypertension; E78.5 Hyperlipidemia, unspecified
CPT/HCPCS: 36415; 71045-TC-FY; 74018-TC-FY; 74177-TC; 80053; 81003; 82550; 82962; 83605; 83690; 84484; 85025; 85610; 85730; 86850; 86900; 86901; 87086; 93005; 93010; 97116-GP; 97161-GP; 99285-25; J0131; Q9967; U0003

== ENCOUNTER 2020-01-11 10:48 | Emergency (ER) | payer OTHER ==
[2020-01-11 10:54] VITALS: BP 132/85; PULSE 70; TEMP 98.1; BMI 28.3
[2020-01-11] MEDS ORDERED: ACETAMINOPHEN 500 MG TABLET (FP) PO ONE (11:10)
--- NOTE | 2020-01-11 11:11 | PDOC ---
History of Present Illness - General Chief Complaint: Toothache Stated Complaint: TOOTHACHE Time Seen by Provider: 01/11/20 11:05 History Source: Patient - History of Present Illness Timing/Duration: other Past History - Medical History Allergies/Adverse Reactions: Allergies Allergy/AdvReac Type Severity Reaction Status Date / Time No Known Allergies Allergy Verified 01/11/20 10:54 Home Medications: Ambulatory Orders Amlodipine Besylate [Norvasc -] 10 mg PO DAILY 01/07/19 Atorvastatin Ca [Lipitor] 10 mg PO DAILY 10/11/19 COPD: No GI Disorders: (hx diverticulitis) HTN: Yes Hypercholesterolemia: Yes - Reproductive History Is Patient Now?: No - Immunization History Immunization Up to Date: Yes - Psycho-Social/Smoking History Smoking Status: No Smoking History: Never smoked Years of Tobacco Use: 0 Have you smoked in the past 12 months: No Number of Cigarettes Smoked Daily: 0 If you are a former smoker, when did you quit?: 15 years ago Cigars Per Day: 0 Information on smoking cessation initiated: No - Substance Abuse Hx (Audit-C & DAST Scrn) How often the patient has a drink containing alcohol: Never Score: In Men: 4 or > Positive; In Women: 3 or > Positive: 0 Screen Result (Pos requires Nsg. Audit-10AR): Negative In the last yr the pt used illegal drug/Rx for NonMed reason: No Score: Yes response is considered Positive: 0 Screen Result (Positive result requires Nsg. DAST-10): Negative Review of Systems - Review of Systems Constitutional: No: Chills, Fever *Physical Exam - Vital Signs Last Vital Signs Temp Pulse Resp BP Pulse Ox 98.1 F 70 19 132/85 100 01/11/20 10:52 01/11/20 10:52 01/11/20 10:52 01/11/20 10:52 01/11/20 10:52 - Physical Exam General Appearance: Yes: Appropriately Dressed, Mild Distress HEENT: positive: Normal Voice, Other (ttp to gingivae of L lower 1st and 2nd premolar, no erythema or swelling) Neck: positive: Supple Medical Decision Making - Medical Decision Making 01/11/20 11:10 69-year-old female with history of hypertension here with toothache x2 days. Also states when she brushed her teeth, her gum sometimes bleed. No facial swelling fever or chills. No recent trauma. Last saw dentist was over 8 months ago when she had routine dental cleaning. Not on blood thinners. Pt well telma and stable w/ ttp to L lower gingiva but no overt e/o infection. Dc w/ pain control and dental referral Discharge - Discharge Information Problems reviewed: Yes Clinical Impression/Diagnosis: Toothache Condition: Good Disposition: HOME - Follow up/Referral - Patient Discharge Instructions Patient Printed Discharge Instructions: DI for Dental Pain Additional Instructions: There was no signs of infection on dental exam today. Continue taking Tylenol [id number] every 6 hours as needed for pain and follow-up with your dentist today - Post Discharge Activity
[2020-01-11] MEDS ORDERED: ACETAMINOPHEN 500 MG TABLET (FP) ONE (11:12)
== END 2020-01-11 11:14 | disposition home or self-care (01) ==
LOC: JERFT 10:48
DX: K08.89 Other specified disorders of teeth and supporting structures (principal)
CPT/HCPCS: 99283-25

== ENCOUNTER 2020-06-10 03:52 | Emergency (ER) | payer OTHER ==
[2020-06-10 04:21] VITALS: TEMP 98.3; BMI 26.4
[2020-06-10] MEDS ORDERED: ONDANSETRON 4 MG/2 ML VIAL IVPB ONE (05:14)
[2020-06-10] MEDS ORDERED: LACTATED RINGERS SOLUTION 1000 ML INFUS.BAG IV ONE (05:14)
[2020-06-10] MEDS ORDERED: ACETAMINOPHEN 1000 MG/100 ML VIAL (NON FORMULARY) IVPB ONE (05:14)
[2020-06-10] MEDS ORDERED: ACETAMINOPHEN INJECTION 100 ML IVPB ONE (05:24)
[2020-06-10] MEDS ORDERED: ONDANSETRON 4 MG/2 ML VIAL ONE (05:24)
[2020-06-10 06:18] LABS: BASO % 0.3 % (0-2.0); EOS % 0.1 % (0-4.5); HEMOGLOBIN 12.7 GM/dL (10.7-15.3); LYMPH % 6.4 % (8-40); MCH 29.4 pg (25.7-33.7); MCHC 33.5 g/dl (32.0-36.0); MEAN CELL VOLUME 87.6 fl (80-96); MEAN PLT VOLUME 9.8 fl (7.5-11.1); MONO % 5.6 % (3.8-10.2); NEUT % 87.6 % (42.8-82.8); PLATELET COUNT 201 K/MM3 (134-434); RBC 4.34 M/mm3 (3.60-5.2); RDW 13.9 % (11.6-15.6)
[2020-06-10 06:36] LABS: CHLORIDE 107 mmol/L (98-107); POTASSIUM 3.5 mmol/L (3.5-5.1); SODIUM 141 mmol/L (136-145)
[2020-06-10 06:39] LABS: ALBUMIN 3.8 g/dl (3.4-5.0); ANION GAP 10 MMOL/L (8-16); CALCIUM 9.2 mg/dL (8.5-10.1); CO2 25 mmol/L (21-32)
[2020-06-10 06:40] LABS: BLOOD UREA NITROGEN 21.5 mg/dL (7-18); GLUCOSE,RANDOM 137 mg/dL (74-106); LIPASE 489 U/L (73-393)
[2020-06-10 06:42] LABS: CREATININE 0.7 mg/dL (0.55-1.3); INR 1.05 (0.83-1.09); PROTHROMBIN TIME (PATIENT) 12.7 SEC (9.7-13.0); SGOT/AST 18 U/L (15-37); SGPT/ALT 22 U/L (13-61)
[2020-06-10 06:44] LABS: ACTIVATED PTT 31.3 SECONDS (25.2-36.5); BILIRUBIN,TOTAL 0.5 mg/dL (0.2-1); TOT PROT 7.2 g/dl (6.4-8.2)
[2020-06-10 06:45] LABS: ALK PHOS 121 U/L (45-117)
[2020-06-10 08:06] LABS: PH,URINE 5.5 (5.0-8.0); URINE APPEARANCE CLEAR; URINE BILIRUBIN NEGATIVE (NEGATIVE); URINE COLOR DK YELLOW; URINE GLUCOSE (UA) NEGATIVE (NEGATIVE); URINE KETONE TRACE (NEGATIVE); URINE LEUK ESTERASE NEGATIVE (NEGATIVE); URINE NITRITE NEGATIVE (NEGATIVE); URINE PROTEIN NEGATIVE (NEGATIVE)
[2020-06-10 09:58] VITALS: BP 118/65; PULSE 76
== END 2020-06-10 09:58 | disposition home or self-care (01) ==
LOC: JER 03:52
PROC: 3E033GC Introduction of Other Therapeutic Substance into Peripheral Vein, Percutaneous Approach (ICD-10-PCS; principal; 2020-06-10)
DX: R10.32 Left lower quadrant pain (principal); K59.00 Constipation, unspecified
CPT/HCPCS: 36415; 74177-TC; 80053; 81003; 83605; 83690; 84484; 85025; 85610; 85730; 86850; 86870; 86900; 86901; 86902; 87086; 93005; 93010; 99285-25; J0131; Q9967

== ENCOUNTER 2021-04-15 01:27 | Emergency (ER) | payer OTHER ==
[2021-04-15 01:35] VITALS: BP 137/83; PULSE 99; TEMP 97.8; BMI 27.3
[2021-04-15] MEDS ORDERED: ACETAMINOPHEN 1000 MG/100 ML BAG IVPB ONE (02:21)
[2021-04-15] MEDS ORDERED: FAMOTIDINE 20 MG/50 ML IVPB 20 MG/50 ML MG IVPB ONE ×2 (02:21→02:41)
[2021-04-15] MEDS ORDERED: MAG HYDROX/AL HYDROX/SIMETH -MYLANTA- ORAL SUSPENSION PO ONE (02:21)
[2021-04-15] MEDS ORDERED: ONDANSETRON 4 MG/2 ML VIAL IVPUSH ONE (02:21)
[2021-04-15] MEDS ORDERED: ACETAMINOPHEN INJECTION 100 ML IVPB ONE (02:29)
[2021-04-15] MEDS ORDERED: ONDANSETRON 4 MG/2 ML VIAL ONE (02:29)
[2021-04-15] MEDS ORDERED: MAG HYDROX/AL HYDROX/SIMETH 30 ML UNIT-DOSE CUP ONE (02:29)
[2021-04-15 02:35] LABS: HEMATOCRIT 42.2 % (32.4-45.2); HEMOGLOBIN 13.6 GM/dL (10.7-15.3); MCH 28.5 pg (25.7-33.7); MCHC 32.3 g/dl (32.0-36.0); MEAN CELL VOLUME 88.5 fl (80-96); MEAN PLT VOLUME 9.4 fl (7.5-11.1); PLATELET COUNT 269 10^3/uL (134-434); RBC 4.78 M/mm3 (3.60-5.2); RDW 13.6 % (11.6-15.6); WHITE BLOOD COUNT 8.9 K/mm3 (4.0-10.0)
[2021-04-15 02:53] LABS: CHLORIDE 107 mmol/L (98-107); SODIUM 140 mmol/L (136-145)
[2021-04-15 02:56] LABS: ALBUMIN 3.8 g/dl (3.4-5.0); ANION GAP 6 MMOL/L (8-16); BLOOD UREA NITROGEN 14.5 mg/dL (7-18); CALCIUM 9.4 mg/dL (8.5-10.1); CO2 27 mmol/L (21-32); GLUCOSE,RANDOM 135 mg/dL (74-106)
[2021-04-15 02:59] LABS: CREATININE 0.5 mg/dL (0.55-1.3)
[2021-04-15 03:00] LABS: SGOT/AST 18 U/L (15-37); SGPT/ALT 23 U/L (13-61)
[2021-04-15 03:01] LABS: BILIRUBIN,TOTAL 0.6 mg/dL (0.2-1); TOT PROT 7.2 g/dl (6.4-8.2)
[2021-04-15 03:02] LABS: ALK PHOS 146 U/L (45-117)
[2021-04-15 05:42] LABS: ANISOCYTOSIS 1+; MACROCYTOSIS 0; OVALOCYTE 1+; PLATELET ESTIMATE NORMAL; TOXIC GRANULATION 2+
== END 2021-04-15 04:38 | disposition home or self-care (01) ==
LOC: JER 01:27
PROC: 3E0333Z Introduction of Anti-inflammatory into Peripheral Vein, Percutaneous Approach (ICD-10-PCS; principal; 2021-04-15)
PROC: 3E033GC Introduction of Other Therapeutic Substance into Peripheral Vein, Percutaneous Approach (ICD-10-PCS; 2021-04-15)
PROC: 3E033GC Introduction of Other Therapeutic Substance into Peripheral Vein, Percutaneous Approach (ICD-10-PCS; 2021-04-15)
DX: R11.0 Nausea (principal); R10.10 Upper abdominal pain, unspecified
CPT/HCPCS: 36415; 80053; 82550; 83690; 84484; 85025; 93005; 93010; 99284-25; J0131

== ENCOUNTER 2021-12-19 19:01 | Inpatient (IN) | payer OTHER ==
[2021-12-19 19:06] VITALS: BMI 27.3
[2021-12-19 20:42] LABS: BASO % 0.7 % (0-2.0); EOS % 2.4 % (0-4.5); HEMATOCRIT 41.5 % (32.4-45.2); HEMOGLOBIN 13.4 GM/dL (10.7-15.3); LYMPH % 24.8 % (8-40); MCH 28.6 pg (25.7-33.7); MCHC 32.3 g/dl (32.0-36.0); MEAN CELL VOLUME 88.4 fl (80-96); MEAN PLT VOLUME 9.5 fl (7.5-11.1); NEUT % 63.1 % (42.8-82.8); PLATELET COUNT 229 10^3/uL (134-434); RBC 4.69 M/mm3 (3.60-5.2); RDW 13.8 % (11.6-15.6)
[2021-12-19 20:56] LABS: CALCIUM 8.7 mg/dL (8.5-10.1)
[2021-12-19 20:57] LABS: ALBUMIN 3.7 g/dl (3.4-5.0); BLOOD UREA NITROGEN 14.9 mg/dL (7-18)
[2021-12-19 21:00] LABS: CREATININE 0.6 mg/dL (0.55-1.3)
[2021-12-19 21:01] LABS: BILIRUBIN,TOTAL 0.3 mg/dL (0.2-1); TOT PROT 6.9 g/dl (6.4-8.2)
[2021-12-19 21:05] LABS: N-TERMINAL BNP 23.8 pg/ml (5-125)
[2021-12-20] MEDS ORDERED: FUROSEMIDE 40 MG TABLET (FP) PO ONE (04:26)
[2021-12-20 04:40] LABS: EPI CELLS 18 /uL (0-25.1); HYALINE CASTS 0 /uL (0-3.1); PH,URINE 6.5 (5.0-8.0); URINE APPEARANCE CLEAR; URINE BACTERIA 284 /uL (0-1359); URINE BILIRUBIN NEGATIVE (NEGATIVE); URINE COLOR YELLOW; URINE GLUCOSE (UA) NEGATIVE (NEGATIVE); URINE KETONE NEGATIVE (NEGATIVE); URINE LEUK ESTERASE 1+ (NEGATIVE); URINE NITRITE NEGATIVE (NEGATIVE); URINE PROTEIN NEGATIVE (NEGATIVE); URINE RBC 13 /uL (0-23.9); URINE UROBILINOGEN 0.2 mg/dL (0.2-1.0); URINE WBC 32 /uL (0-25.8)
[2021-12-20] MEDS ORDERED: FUROSEMIDE 40 MG TABLET (FP) ONE (06:30)
[2021-12-20 06:47] LABS: BASO % 0.7 % (0-2.0); EOS % 3.8 % (0-4.5); HEMATOCRIT 41.1 % (32.4-45.2); HEMOGLOBIN 13.3 GM/dL (10.7-15.3); LYMPH % 28.6 % (8-40); MCH 28.8 pg (25.7-33.7); MCHC 32.5 g/dl (32.0-36.0); MEAN CELL VOLUME 88.5 fl (80-96); MEAN PLT VOLUME 9.9 fl (7.5-11.1); MONO % 9.4 % (3.8-10.2); NEUT % 57.5 % (42.8-82.8); PLATELET COUNT 217 10^3/uL (134-434); RBC 4.64 M/mm3 (3.60-5.2); RDW 13.7 % (11.6-15.6); WHITE BLOOD COUNT 5.7 K/mm3 (4.0-10.0)
[2021-12-20 07:12] LABS: BLOOD UREA NITROGEN 11.5 mg/dL (7-18); CALCIUM 9.2 mg/dL (8.5-10.1); MAGNESIUM 2.2 mg/dL (1.8-2.4)
[2021-12-20 07:13] LABS: ALBUMIN 3.6 g/dl (3.4-5.0)
[2021-12-20 07:14] LABS: CHOLESTEROL 172 mg/dL (50-200); TRIGLYCERIDES 65 mg/dL (0-150)
[2021-12-20 07:15] LABS: CREATININE 0.5 mg/dL (0.55-1.3); LDL CHOLESTEROL (ONLY SJRH) 83 mg/dL (5-100); PHOSPHOROUS 3.5 mg/dL (2.5-4.9)
[2021-12-20 07:16] LABS: BILIRUBIN,TOTAL 0.5 mg/dL (0.2-1); TOT PROT 6.6 g/dl (6.4-8.2)
[2021-12-20 07:17] LABS: HDL CHOLESTEROL 77 mg/dL (40-60)
[2021-12-20] MEDS ORDERED: ENOXAPARIN NA (PORCINE) 40 MG/0.4 ML DISP.SYRIN SQ SCH (10:00)
[2021-12-20 10:29] VITALS: RESP 18
[2021-12-20] MEDS ORDERED: LIDOCAINE 5% TOPICAL PATCH TP SCH (11:15)
[2021-12-20 12:17] VITALS: BP 123/73; PULSE 60; TEMP 98.2
[2021-12-20] MEDS ORDERED: ATORVASTATIN CA 10 MG TABLET (FP) PO SCH (22:00)
[2021-12-20] MEDS ORDERED: LIDOCAINE PATCH REMOVAL MC SCH (22:00)
== END 2021-12-20 16:25 | disposition home or self-care (01) | DRG 204 ==
LOC: JER 19:01 → JERBED 20:32 → J6S 12-20 10:36
PROVIDERS: ADMIT Internal Medicine; ATTEND Internal Medicine
DX: R06.02 Shortness of breath (principal); R60.0 Localized edema; M54.9 Dorsalgia, unspecified; I10 Essential (primary) hypertension; E78.5 Hyperlipidemia, unspecified
CPT/HCPCS: 36415; 71045-TC-FY; 71275-TC; 80053; 80061; 81003; 83735; 83880; 84100; 84443; 84484; 85025; 93005; 93010; 93306-TC; 99285-25; C9803-CS; Q9967; U0003; U0005

== ENCOUNTER 2022-01-09 01:32 | Inpatient (IN) | payer OTHER ==
[2022-01-09 01:53] VITALS: BMI 27.3
[2022-01-09] MEDS ORDERED: ONDANSETRON 4 MG/2 ML VIAL IVPUSH ONE (02:33)
[2022-01-09] MEDS ORDERED: ACETAMINOPHEN 1000 MG/100 ML BAG IVPB ONE (02:33)
[2022-01-09] MEDS ORDERED: SODIUM CHLORIDE 500 ML IV STA (02:35)
[2022-01-09] MEDS ORDERED: ACETAMINOPHEN INJECTION 100 ML IVPB ONE ×2 (02:38→11:53)
[2022-01-09] MEDS ORDERED: ONDANSETRON 4 MG/2 ML VIAL ONE ×2 (02:38→11:53)
[2022-01-09 03:04] LABS: BASO % 0.3 % (0-2.0); HEMATOCRIT 41.7 % (32.4-45.2); LYMPH % 6.9 % (8-40); MCH 29.5 pg (25.7-33.7); MCHC 33.5 g/dl (32.0-36.0); MEAN PLT VOLUME 9.2 fl (7.5-11.1); MONO % 3.9 % (3.8-10.2); NEUT % 88.9 % (42.8-82.8); PLATELET COUNT 243 10^3/uL (134-434); RBC 4.74 M/mm3 (3.60-5.2); RDW 13.3 % (11.6-15.6)
[2022-01-09 03:22] LABS: CHLORIDE 102 mmol/L (98-107); SODIUM 137 mmol/L (136-145)
[2022-01-09 03:24] LABS: CALCIUM 9.7 mg/dL (8.5-10.1)
[2022-01-09 03:25] LABS: ALBUMIN 3.8 g/dl (3.4-5.0); ANION GAP 8 MMOL/L (8-16); BLOOD UREA NITROGEN 14.2 mg/dL (7-18); CO2 27 mmol/L (21-32); GLUCOSE,RANDOM 152 mg/dL (74-106); LIPASE 148 U/L (73-393)
[2022-01-09 03:28] LABS: CREATININE 0.6 mg/dL (0.55-1.3); SGOT/AST 35 U/L (15-37); SGPT/ALT 24 U/L (13-61)
[2022-01-09 03:29] LABS: TOT PROT 7.3 g/dl (6.4-8.2)
[2022-01-09 03:30] LABS: BILIRUBIN,TOTAL 0.5 mg/dL (0.2-1)
[2022-01-09 03:31] LABS: ALK PHOS 130 U/L (45-117)
[2022-01-09] MEDS ORDERED: LIDOCAINE HCL 2% JELLY 10 ML CARTRIDGE ONE (05:19)
[2022-01-09] MEDS ORDERED: LIDOCAINE HCL 2% JELLY 10 ML CARTRIDGE UR ONE (05:25)
[2022-01-09] MEDS ORDERED: ONDANSETRON 4 MG/2 ML VIAL IVPUSH PRN (07:14)
[2022-01-09] MEDS: ENOXAPARIN NA (PORCINE) 40 MG/0.4 ML DISP.SYRIN SQ SCH (10:09)
[2022-01-09] MEDS: LACTATED RINGERS SOLUTION 1,000 ML IV SCH (10:09)
[2022-01-09] MEDS ORDERED: ENOXAPARIN NA (PORCINE) 40 MG/0.4 ML DISP.SYRIN SQ ONE (10:12)
[2022-01-09] MEDS: ACETAMINOPHEN 1000 MG/100 ML BAG IVPB PRN ×2 (12:10→23:29)
[2022-01-10] MEDS: ENOXAPARIN NA (PORCINE) 40 MG/0.4 ML DISP.SYRIN SQ SCH (09:17)
[2022-01-10] MEDS: LACTATED RINGERS SOLUTION 1,000 ML IV SCH (09:29)
[2022-01-10 09:37] LABS: HEMATOCRIT 40.4 % (32.4-45.2); HEMOGLOBIN 12.9 GM/dL (10.7-15.3); MCH 28.4 pg (25.7-33.7); MCHC 31.9 g/dl (32.0-36.0); MEAN CELL VOLUME 89.1 fl (80-96); MEAN PLT VOLUME 9.4 fl (7.5-11.1); PLATELET COUNT 249 10^3/uL (134-434); RBC 4.54 M/mm3 (3.60-5.2); RDW 13.7 % (11.6-15.6); WHITE BLOOD COUNT 6.6 K/mm3 (4.0-10.0)
[2022-01-10 10:11] LABS: BLOOD UREA NITROGEN 12.4 mg/dL (7-18)
[2022-01-10 10:14] LABS: CALCIUM 8.7 mg/dL (8.5-10.1); MAGNESIUM 2.3 mg/dL (1.8-2.4)
[2022-01-10 10:16] LABS: CREATININE 0.6 mg/dL (0.55-1.3)
[2022-01-10] MEDS: ACETAMINOPHEN 1000 MG/100 ML BAG IVPB PRN ×2 (13:19→22:38)
[2022-01-10] MEDS: D5-LR+20 MEQ KCL - 20 MEQ/1,000 ML INFUS.BAG IV SCH (18:05)
[2022-01-10 23:07] VITALS: RESP 18
[2022-01-11 05:32] LABS: EPI CELLS 28 /uL (0-25.1); HYALINE CASTS 1 /uL (0-3.1); PH,URINE 7.5 (5.0-8.0); URINE APPEARANCE CLOUDY; URINE BACTERIA 962 /uL (0-1359); URINE BILIRUBIN NEGATIVE (NEGATIVE); URINE COLOR YELLOW; URINE GLUCOSE (UA) NEGATIVE (NEGATIVE); URINE KETONE 1+ (NEGATIVE); URINE LEUK ESTERASE TRACE (NEGATIVE); URINE NITRITE NEGATIVE (NEGATIVE); URINE PROTEIN NEGATIVE (NEGATIVE); URINE RBC 27 /uL (0-23.9); URINE UROBILINOGEN 0.2 mg/dL (0.2-1.0); URINE WBC 24 /uL (0-25.8)
[2022-01-11] MEDS: ENOXAPARIN NA (PORCINE) 40 MG/0.4 ML DISP.SYRIN SQ SCH (09:15)
[2022-01-11] MEDS: D5-LR+20 MEQ KCL - 20 MEQ/1,000 ML INFUS.BAG IV SCH (15:22)
[2022-01-11] MEDS ORDERED: ARTIFICIAL TEARS (POLYVINYL ALCOHOL) OPTH DROPS OU PRN (20:03)
[2022-01-12 08:03] VITALS: BP 138/70; PULSE 66; TEMP 99
[2022-01-12] MEDS: ENOXAPARIN NA (PORCINE) 40 MG/0.4 ML DISP.SYRIN SQ SCH (09:30)
[2022-01-12] MEDS ORDERED: amLODIPine BESYLATE 10 MG TABLET (FP) PO SCH (10:00)
[2022-01-12 10:12] LABS: BASO % 0.5 % (0-2.0); EOS % 1.4 % (0-4.5); HEMATOCRIT 42.3 % (32.4-45.2); HEMOGLOBIN 13.8 GM/dL (10.7-15.3); LYMPH % 19.1 % (8-40); MCH 28.9 pg (25.7-33.7); MCHC 32.7 g/dl (32.0-36.0); MEAN CELL VOLUME 88.5 fl (80-96); MEAN PLT VOLUME 9.1 fl (7.5-11.1); MONO % 7.8 % (3.8-10.2); NEUT % 71.2 % (42.8-82.8); PLATELET COUNT 242 10^3/uL (134-434); RBC 4.78 M/mm3 (3.60-5.2); RDW 13.4 % (11.6-15.6); WHITE BLOOD COUNT 5.9 K/mm3 (4.0-10.0)
[2022-01-12 10:49] LABS: ALBUMIN 3.6 g/dl (3.4-5.0); BILIRUBIN,TOTAL 0.5 mg/dL (0.2-1); BLOOD UREA NITROGEN 10.2 mg/dL (7-18); CALCIUM 9.4 mg/dL (8.5-10.1); CREATININE 0.7 mg/dL (0.55-1.3); PHOSPHOROUS 3.4 mg/dL (2.5-4.9)
== END 2022-01-12 15:59 | disposition home or self-care (01) | DRG 388 ==
LOC: JER 01:32 → JERBED 05:13 → J6S 20:28
PROVIDERS: ADMIT Internal Medicine; ATTEND Internal Medicine
PROC: 0D9670Z Drainage of Stomach with Drainage Device, Via Natural or Artificial Opening (ICD-10-PCS; principal; 2022-01-09)
DX: K56.699 Other intestinal obstruction unspecified as to partial versus complete obstruction (principal); U07.1 COVID-19; R11.2 Nausea with vomiting, unspecified; I10 Essential (primary) hypertension; E78.5 Hyperlipidemia, unspecified; E04.2 Nontoxic multinodular goiter; R91.1 Solitary pulmonary nodule; K57.90 Diverticulosis of intestine, part unspecified, without perforation or abscess without bleeding
CPT/HCPCS: 0241U-QW; 36415; 71045-TC-FY; 74018-TC-FY; 74019-TC-FY; 74177-TC; 80048; 80053; 81003; 83690; 83735; 84100; 84484; 85025; 85027; 87086; 93005; 93010; 93971-TC; 99285-25; Q9967

== ENCOUNTER 2022-06-24 00:03 | Inpatient (IN) | payer OTHER ==
[2022-06-24] MEDS ORDERED: ACETAMINOPHEN 1000 MG/100 ML BAG IVPB ONE (01:30)
[2022-06-24] MEDS ORDERED: LACTATED RINGERS SOLUTION 1,000 ML/1,000 ML INFUS.BAG IV SCH ×2 (01:30→06:30)
[2022-06-24] MEDS ORDERED: ONDANSETRON 4 MG/2 ML VIAL IVPUSH ONE (01:30)
[2022-06-24] MEDS ORDERED: ACETAMINOPHEN INJECTION 100 ML IVPB ONE (01:59)
[2022-06-24] MEDS ORDERED: ONDANSETRON 4 MG/2 ML VIAL ONE (01:59)
[2022-06-24 02:45] LABS: BASO % 0.2 % (0-2.0); EOS % 0.1 % (0-4.5); HEMATOCRIT 40.1 % (32.4-45.2); HEMOGLOBIN 13.2 GM/dL (10.7-15.3); LYMPH % 5.2 % (8-40); MCH 28.4 pg (25.7-33.7); MEAN PLT VOLUME 9.5 fl (7.5-11.1); MONO % 3.8 % (3.8-10.2); NEUT % 90.7 % (42.8-82.8); PLATELET COUNT 225 10^3/uL (134-434); RBC 4.66 M/mm3 (3.60-5.2); RDW 13.5 % (11.6-15.6)
[2022-06-24 02:53] LABS: INR 1.04 (0.83-1.09); PROTHROMBIN TIME (PATIENT) 12.1 SEC (9.7-13.0)
[2022-06-24 03:06] LABS: CALCIUM 9.8 mg/dL (8.5-10.1)
[2022-06-24 03:07] LABS: ALBUMIN 3.9 g/dl (3.4-5.0); BLOOD UREA NITROGEN 18.1 mg/dL (7-18); MAGNESIUM 2.3 mg/dL (1.8-2.4)
[2022-06-24 03:10] LABS: CREATININE 0.7 mg/dL (0.55-1.3)
[2022-06-24 03:11] LABS: BILIRUBIN,TOTAL 0.4 mg/dL (0.2-1); TOT PROT 7.4 g/dl (6.4-8.2)
[2022-06-24 06:14] LABS: URINE APPEARANCE CLEAR; URINE BILIRUBIN NEGATIVE (NEGATIVE); URINE COLOR YELLOW; URINE GLUCOSE (UA) NEGATIVE (NEGATIVE); URINE KETONE TRACE (NEGATIVE)
[2022-06-24 06:15] LABS: PH,URINE 8.5 (5.0-8.0); URINE PROTEIN NEGATIVE (NEGATIVE)
[2022-06-24 06:16] LABS: URINE LEUK ESTERASE NEGATIVE (NEGATIVE); URINE NITRITE NEGATIVE (NEGATIVE); URINE UROBILINOGEN 0.2 mg/dL (0.2-1.0)
[2022-06-24] MEDS ORDERED: ENOXAPARIN NA (PORCINE) 40 MG/0.4 ML DISP.SYRIN SQ ONE ×2 (08:50→13:52)
[2022-06-24] MEDS: ENOXAPARIN NA (PORCINE) 40 MG/0.4 ML DISP.SYRIN SQ SCH (11:00)
[2022-06-24 12:51] LABS: HEMATOCRIT 38.8 % (32.4-45.2); HEMOGLOBIN 12.5 GM/dL (10.7-15.3); MCH 27.8 pg (25.7-33.7); MCHC 32.2 g/dl (32.0-36.0); MEAN CELL VOLUME 86.2 fl (80-96); MEAN PLT VOLUME 9.4 fl (7.5-11.1); PLATELET COUNT 220 10^3/uL (134-434); RDW 13.7 % (11.6-15.6); WHITE BLOOD COUNT 6.8 K/mm3 (4.0-10.0)
[2022-06-24 13:16] LABS: ALBUMIN 3.4 g/dl (3.4-5.0); CALCIUM 8.8 mg/dL (8.5-10.1); MAGNESIUM 2.2 mg/dL (1.8-2.4)
[2022-06-24 13:19] LABS: PHOSPHOROUS 2.7 mg/dL (2.5-4.9)
[2022-06-24 13:20] LABS: CREATININE 0.5 mg/dL (0.55-1.3)
[2022-06-24 13:21] LABS: BILIRUBIN,TOTAL 0.5 mg/dL (0.2-1); TOT PROT 6.3 g/dl (6.4-8.2)
[2022-06-24] MEDS ORDERED: ONDANSETRON 4 MG/2 ML VIAL IVPUSH PRN (17:36)
[2022-06-24] MEDS: D5-1/2NS+10 MEQ KCL - 10 MEQ/1,000 ML INFUS.BAG IV SCH (17:58)
[2022-06-24] MEDS: ACETAMINOPHEN 1000 MG/100 ML BAG IVPB PRN (18:00)
[2022-06-24 19:21] VITALS: BMI 25.0
[2022-06-24] MEDS: FAMOTIDINE 20 MG/50 ML IVPB 20 MG/50 ML MG IVPB SCH (22:25)
[2022-06-25] MEDS: D5-1/2NS+10 MEQ KCL - 10 MEQ/1,000 ML INFUS.BAG IV SCH ×2 (08:11→13:13)
[2022-06-25] MEDS: FAMOTIDINE 20 MG/50 ML IVPB 20 MG/50 ML MG IVPB SCH ×2 (09:58→21:15)
[2022-06-25] MEDS: ENOXAPARIN NA (PORCINE) 40 MG/0.4 ML DISP.SYRIN SQ SCH (09:58)
[2022-06-25 11:07] LABS: BASO % 0.4 % (0-2.0); EOS % 1.2 % (0-4.5); HEMATOCRIT 41.4 % (32.4-45.2); HEMOGLOBIN 13.6 GM/dL (10.7-15.3); LYMPH % 15.6 % (8-40); MCH 29.1 pg (25.7-33.7); MCHC 32.9 g/dl (32.0-36.0); MEAN CELL VOLUME 88.5 fl (80-96); MEAN PLT VOLUME 9.6 fl (7.5-11.1); MONO % 5.3 % (3.8-10.2); NEUT % 77.5 % (42.8-82.8); PLATELET COUNT 229 10^3/uL (134-434); RBC 4.68 M/mm3 (3.60-5.2); RDW 13.4 % (11.6-15.6); WHITE BLOOD COUNT 6.6 K/mm3 (4.0-10.0)
[2022-06-25 11:23] LABS: CALCIUM 8.6 mg/dL (8.5-10.1)
[2022-06-25 11:24] LABS: BLOOD UREA NITROGEN 8.4 mg/dL (7-18); MAGNESIUM 2.2 mg/dL (1.8-2.4)
[2022-06-25 11:27] LABS: CREATININE 0.6 mg/dL (0.55-1.3)
[2022-06-25] MEDS: amLODIPine BESYLATE 10 MG TABLET (FP) PO SCH (13:25)
[2022-06-25] MEDS: ACETAMINOPHEN 1000 MG/100 ML BAG IVPB PRN (16:28)
[2022-06-26] MEDS: ENOXAPARIN NA (PORCINE) 40 MG/0.4 ML DISP.SYRIN SQ SCH (10:16)
[2022-06-26] MEDS: amLODIPine BESYLATE 10 MG TABLET (FP) PO SCH (10:16)
[2022-06-26] MEDS: FAMOTIDINE 20 MG/50 ML IVPB 20 MG/50 ML MG IVPB SCH (10:16)
[2022-06-26 14:52] VITALS: BP 118/74; PULSE 61; RESP 18; TEMP 98.8
[2022-06-26] MEDS: D5-1/2NS+10 MEQ KCL - 10 MEQ/1,000 ML INFUS.BAG IV SCH (16:40)
== END 2022-06-26 17:15 | disposition home or self-care (01) | DRG 390 ==
LOC: JER 00:03 → INTOOBSV 05:22 → JERBED 05:22 → J6S 17:39 → OBSVTOIN 06-25 10:02
PROVIDERS: ADMIT Internal Medicine; ATTEND Internal Medicine
DX: K56.609 Unspecified intestinal obstruction, unspecified as to partial versus complete obstruction (principal); I10 Essential (primary) hypertension; E78.5 Hyperlipidemia, unspecified; E04.2 Nontoxic multinodular goiter; R91.1 Solitary pulmonary nodule; K57.90 Diverticulosis of intestine, part unspecified, without perforation or abscess without bleeding; D72.829 Elevated white blood cell count, unspecified
CPT/HCPCS: 0241U-QW; 36415; 71045-TC-FY; 74019-TC-FY; 74177-TC; 80048; 80053; 81003; 83690; 83735; 84100; 84484; 85025; 85027; 85610; 85730; 87086; 93005; 93010; 99285-25; G0378

== ENCOUNTER 2023-05-30 18:09 | Emergency (ER) | payer OTHER ==
[2023-05-30 18:15] VITALS: BP 138/78; PULSE 65; RESP 16; TEMP 98.3; BMI 22.6
[2023-05-30 20:44] LABS: BASO % 0.6 % (0-2.0); EOS % 1.7 % (0-4.5); HEMATOCRIT 40.4 % (32.4-45.2); HEMOGLOBIN 13.3 GM/dL (10.7-15.3); LYMPH % 33.4 % (8-40); MCH 29.1 pg (25.7-33.7); MEAN CELL VOLUME 88.2 fl (80-96); MEAN PLT VOLUME 9.7 fl (7.5-11.1); MONO % 7.9 % (3.8-10.2); NEUT % 56.4 % (42.8-82.8); PLATELET COUNT 219 10^3/uL (134-434); RBC 4.58 M/mm3 (3.60-5.2); RDW 14.1 % (11.6-15.6); WHITE BLOOD COUNT 5.7 K/mm3 (4.0-10.0)
[2023-05-30 20:55] LABS: INR 1.07 (0.83-1.09); PROTHROMBIN TIME (PATIENT) 12.4 SEC (9.7-13.0)
[2023-05-30 20:57] LABS: ACTIVATED PTT 29.6 SECONDS (25.2-36.5)
[2023-05-30 20:59] LABS: POTASSIUM 4.9 mmol/L (3.5-5.1)
[2023-05-30 21:01] LABS: CALCIUM 8.8 mg/dL (8.5-10.1)
[2023-05-30 21:02] LABS: ALBUMIN 3.5 g/dl (3.4-5.0); BLOOD UREA NITROGEN 11.7 mg/dL (7-18)
[2023-05-30 21:05] LABS: CREATININE 0.6 mg/dL (0.55-1.3)
[2023-05-30 21:07] LABS: BILIRUBIN,TOTAL 0.6 mg/dL (0.2-1)
[2023-05-30 21:09] LABS: N-TERMINAL BNP 43.1 pg/ml (5-450)
== END 2023-05-31 00:38 | disposition home or self-care (01) ==
LOC: JER 18:09
DX: R06.02 Shortness of breath (principal); R42 Dizziness and giddiness; R51.9 Headache, unspecified; R11.0 Nausea; R53.83 Other fatigue; Z20.822 Contact with and (suspected) exposure to COVID-19
CPT/HCPCS: 0241U-QW; 36415; 71045-TC-FY; 71275-TC; 80053; 83880; 84484; 85025; 85379; 85610; 85730; 93005; 93010; 99285-25; Q9967

== ENCOUNTER 2023-06-24 00:31 | Inpatient (IN) | payer OTHER ==
[2023-06-24 00:36] VITALS: BMI 25.7
[2023-06-24] MEDS ORDERED: ONDANSETRON 4 MG/2 ML VIAL ONE (01:15)
[2023-06-24] MEDS ORDERED: ACETAMINOPHEN INJECTION 100 ML IVPB ONE (01:15)
[2023-06-24] MEDS: ACETAMINOPHEN 1000 MG/100 ML BAG IVPB ONE (01:43)
[2023-06-24] MEDS: ONDANSETRON 4 MG/2 ML VIAL IVPUSH ONE (01:44)
[2023-06-24 01:59] LABS: BASO % 0.2 % (0-2.0); EOS % 0.4 % (0-4.5); HEMATOCRIT 41.8 % (32.4-45.2); HEMOGLOBIN 13.8 GM/dL (10.7-15.3); LYMPH % 8.7 % (8-40); MCH 28.9 pg (25.7-33.7); MCHC 32.9 g/dl (32.0-36.0); MEAN CELL VOLUME 87.7 fl (80-96); MEAN PLT VOLUME 9.3 fl (7.5-11.1); MONO % 2.9 % (3.8-10.2); NEUT % 87.8 % (42.8-82.8); PLATELET COUNT 241 10^3/uL (134-434); RBC 4.77 M/mm3 (3.60-5.2); RDW 13.9 % (11.6-15.6); WHITE BLOOD COUNT 9.4 K/mm3 (4.0-10.0)
[2023-06-24 02:03] LABS: INR 0.96 (0.83-1.09); PROTHROMBIN TIME (PATIENT) 11.1 SEC (9.7-13.0)
[2023-06-24 02:06] LABS: ACTIVATED PTT 30.8 SECONDS (25.2-36.5)
[2023-06-24 02:21] LABS: POTASSIUM 3.7 mmol/L (3.5-5.1)
[2023-06-24 02:23] LABS: ALBUMIN 3.7 g/dl (3.4-5.0); BLOOD UREA NITROGEN 18.9 mg/dL (7-18); CALCIUM 9.2 mg/dL (8.5-10.1); MAGNESIUM 2.1 mg/dL (1.8-2.4)
[2023-06-24 02:27] LABS: CREATININE 0.6 mg/dL (0.55-1.3)
[2023-06-24 02:28] LABS: BILIRUBIN,TOTAL 0.4 mg/dL (0.2-1)
[2023-06-24 02:58] LABS: URINE APPEARANCE CLEAR; URINE BILIRUBIN NEGATIVE (NEGATIVE); URINE COLOR YELLOW; URINE GLUCOSE (UA) NEGATIVE (NEGATIVE); URINE KETONE NEGATIVE (NEGATIVE); URINE LEUK ESTERASE NEGATIVE (NEGATIVE); URINE NITRITE NEGATIVE (NEGATIVE); URINE PROTEIN TRACE (NEGATIVE); URINE UROBILINOGEN 0.2 mg/dL (0.2-1.0)
[2023-06-24] MEDS: SODIUM CHLORIDE 1,000 ML IV STA (05:50)
[2023-06-24 12:44] VITALS: RESP 18
[2023-06-24 14:30] VITALS: BP 140/77; PULSE 62; TEMP 98.1
== END 2023-06-24 16:58 | disposition home or self-care (01) | DRG 392 ==
LOC: JER 00:31 → JERBED 07:46 → J8W 09:15
PROVIDERS: ADMIT Internal Medicine; ATTEND Internal Medicine
DX: K52.9 Noninfective gastroenteritis and colitis, unspecified (principal); K56.609 Unspecified intestinal obstruction, unspecified as to partial versus complete obstruction; I10 Essential (primary) hypertension; E78.5 Hyperlipidemia, unspecified; R11.2 Nausea with vomiting, unspecified; R10.30 Lower abdominal pain, unspecified
CPT/HCPCS: 0241U-QW; 36415; 74018-TC-FY; 74177-TC; 80053; 81003; 83690; 83735; 84484; 85025; 85610; 85730; 87086; 93005; 93010; 99285-25; J0131; Q9967

== ENCOUNTER 2023-11-27 02:36 | Emergency (ER) | payer OTHER ==
[2023-11-27 02:46] VITALS: BP 132/75; PULSE 69; RESP 18; TEMP 98.6; BMI 25.7
[2023-11-27] MEDS ORDERED: ONDANSETRON 4 MG/2 ML VIAL ONE (03:02)
[2023-11-27] MEDS ORDERED: ACETAMINOPHEN INJECTION 100 ML IVPB ONE (03:02)
[2023-11-27] MEDS: ACETAMINOPHEN 1000 MG/100 ML BAG IVPB ONE (03:14)
[2023-11-27] MEDS: ONDANSETRON 4 MG/2 ML VIAL IVPUSH ONE (03:15)
[2023-11-27 03:21] LABS: BASO % 0.4 % (0-2.0); EOS % 0.6 % (0-4.5); HEMATOCRIT 39.5 % (32.4-45.2); HEMOGLOBIN 13.2 GM/dL (10.7-15.3); LYMPH % 8.7 % (8-40); MCH 29.7 pg (25.7-33.7); MCHC 33.5 g/dl (32.0-36.0); MEAN CELL VOLUME 88.6 fl (80-96); MEAN PLT VOLUME 8.9 fl (7.5-11.1); MONO % 4.6 % (3.8-10.2); NEUT % 85.7 % (42.8-82.8); PLATELET COUNT 216 10^3/uL (134-434); RBC 4.45 M/mm3 (3.60-5.2); RDW 14.1 % (11.6-15.6); WHITE BLOOD COUNT 7.6 K/mm3 (4.0-10.0)
[2023-11-27] MEDS: LACTATED RINGERS SOLUTION 1000 ML INFUS.BAG IV ONE (03:30)
[2023-11-27 03:31] LABS: INR 1.02 (0.83-1.09); PROTHROMBIN TIME (PATIENT) 11.7 SEC (9.7-13.0)
[2023-11-27 03:34] LABS: ACTIVATED PTT 35.3 SECONDS (25.2-36.5)
[2023-11-27 03:49] LABS: POTASSIUM 4.5 mmol/L (3.5-5.1)
[2023-11-27 03:51] LABS: ALBUMIN 3.6 g/dl (3.4-5.0); MAGNESIUM 1.9 mg/dL (1.8-2.4)
[2023-11-27 03:54] LABS: CREATININE 0.6 mg/dL (0.55-1.3)
[2023-11-27 03:56] LABS: BILIRUBIN,TOTAL 0.5 mg/dL (0.2-1); TOT PROT 6.7 g/dl (6.4-8.2)
[2023-11-27 04:13] LABS: URINE APPEARANCE CLEAR; URINE BILIRUBIN NEGATIVE (NEGATIVE); URINE COLOR YELLOW; URINE GLUCOSE (UA) NEGATIVE (NEGATIVE); URINE KETONE NEGATIVE (NEGATIVE); URINE LEUK ESTERASE NEGATIVE (NEGATIVE); URINE NITRITE NEGATIVE (NEGATIVE); URINE PROTEIN NEGATIVE (NEGATIVE); URINE UROBILINOGEN 0.2 mg/dL (0.2-1.0)
== END 2023-11-27 05:34 | disposition left against medical advice (07) ==
LOC: JER 02:36
PROC: 3E033GC Introduction of Other Therapeutic Substance into Peripheral Vein, Percutaneous Approach (ICD-10-PCS; principal; 2023-11-27)
PROC: 3E033NZ Introduction of Analgesics, Hypnotics, Sedatives into Peripheral Vein, Percutaneous Approach (ICD-10-PCS; 2023-11-27)
DX: R10.31 Right lower quadrant pain (principal); R10.32 Left lower quadrant pain; R11.0 Nausea
CPT/HCPCS: 36415; 74177-TC; 80053; 81003; 83690; 83735; 84484; 85025; 85610; 85730; 87086; 93005; 93010; 99285-25; J0131; Q9967

== ENCOUNTER 2024-06-24 07:30 | Observation (INO) | payer OTHER ==
[2024-06-24] MEDS ORDERED: ACETAMINOPHEN INJECTION 100 ML ONE (08:41)
[2024-06-24] MEDS ORDERED: ONDANSETRON 4 MG/2 ML VIAL ONE (08:41)
[2024-06-24] MEDS: ACETAMINOPHEN 1000 MG/100 ML BAG IVPB ONE (08:47)
[2024-06-24] MEDS: ONDANSETRON 4 MG/2 ML VIAL IVPB ONE (08:48)
[2024-06-24 08:57] LABS: BASO % 0.5 % (0-2.0); EOS % 0.1 % (0-4.5); HEMATOCRIT 36.4 % (32.4-45.2); HEMOGLOBIN 11.7 GM/dL (10.7-15.3); LYMPH % 6.1 % (8-40); MCH 26.6 pg (25.7-33.7); MCHC 32.2 g/dl (32.0-36.0); MEAN CELL VOLUME 82.7 fl (80-96); MEAN PLT VOLUME 8.5 fl (7.5-11.1); MONO % 2.4 % (3.8-10.2); NEUT % 90.9 % (42.8-82.8); PLATELET COUNT 333 10^3/uL (134-434); RDW 15.5 % (11.6-15.6); WHITE BLOOD COUNT 8.7 K/mm3 (4.0-10.0)
[2024-06-24 09:13] LABS: ALBUMIN 3.3 g/dl (3.4-5.0); BLOOD UREA NITROGEN 14.9 mg/dL (7-18)
[2024-06-24 09:15] LABS: CREATININE 0.5 mg/dL (0.55-1.3)
[2024-06-24 09:17] LABS: BILIRUBIN,TOTAL 0.5 mg/dL (0.2-1); TOT PROT 6.9 g/dl (6.4-8.2)
[2024-06-24] MEDS ORDERED: KETOROLAC TROMETHAMINE 15 MG/ML VIAL ONE (11:33)
[2024-06-24] MEDS: KETOROLAC TROMETHAMINE 15 MG/ML VIAL IVPUSH ONE (11:35)
[2024-06-24 12:00] LABS: URINE APPEARANCE CLEAR; URINE BILIRUBIN NEGATIVE (NEGATIVE); URINE COLOR YELLOW; URINE GLUCOSE (UA) NEGATIVE (NEGATIVE); URINE KETONE NEGATIVE (NEGATIVE); URINE LEUK ESTERASE NEGATIVE (NEGATIVE); URINE NITRITE NEGATIVE (NEGATIVE); URINE PROTEIN NEGATIVE (NEGATIVE); URINE UROBILINOGEN 0.2 mg/dL (0.2-1.0)
[2024-06-24] MEDS: LACTATED RINGERS SOLUTION 1000 ML INFUS.BAG IV ONE (12:09)
[2024-06-24 12:51] LABS: HIV INTERPRETATION NEGATIVE (NEGATIVE)
[2024-06-24] MEDS ORDERED: ONDANSETRON 4 MG/2 ML VIAL IVPUSH PRN (14:34)
[2024-06-24] MEDS: SODIUM CHLORIDE 0.9%/KCL 20 MEQ/1,000 ML INFUS.BAG IV SCH (15:38)
[2024-06-24 16:05] VITALS: BMI 24.1
[2024-06-24] MEDS: ACETAMINOPHEN 1000 MG/100 ML BAG IVPB PRN (18:59)
[2024-06-24] MEDS: ATORVASTATIN CA 20 MG TABLET (FP) PO SCH (21:22)
[2024-06-25 08:36] LABS: HEMATOCRIT 34.1 % (32.4-45.2); HEMOGLOBIN 10.8 GM/dL (10.7-15.3); MCH 26.6 pg (25.7-33.7); MCHC 31.8 g/dl (32.0-36.0); MEAN CELL VOLUME 83.9 fl (80-96); MEAN PLT VOLUME 8.5 fl (7.5-11.1); PLATELET COUNT 269 10^3/uL (134-434); RBC 4.06 M/mm3 (3.60-5.2); RDW 15.6 % (11.6-15.6); WHITE BLOOD COUNT 4.1 K/mm3 (4.0-10.0)
[2024-06-25 08:51] LABS: POTASSIUM 3.9 mmol/L (3.5-5.1)
[2024-06-25 09:01] LABS: CALCIUM 8.7 mg/dL (8.5-10.1)
[2024-06-25 09:02] LABS: BLOOD UREA NITROGEN 13.9 mg/dL (7-18); MAGNESIUM 2.1 mg/dL (1.8-2.4)
[2024-06-25 09:05] LABS: CREATININE 0.5 mg/dL (0.55-1.3)
[2024-06-25 10:01] VITALS: RESP 18
[2024-06-25] MEDS: DEXTROSE 5%-NORMAL SALINE 1,000 ML IV SCH (10:30)
[2024-06-25] MEDS: ENOXAPARIN NA (PORCINE) 40 MG/0.4 ML DISP.SYRIN SQ SCH (10:30)
[2024-06-25 15:09] VITALS: BP 132/83; PULSE 72; TEMP 98
== END 2024-06-25 17:38 | disposition home or self-care (01) ==
LOC: JER 07:30 → JERBED 12:02 → J8W 13:43
PROVIDERS: ADMIT Student in an Organized Health Care Education/Training Program; ATTEND Nurse Practitioner Family
PROC: 3E0333Z Introduction of Anti-inflammatory into Peripheral Vein, Percutaneous Approach (ICD-10-PCS; principal; 2024-06-24)
PROC: 3E0337Z Introduction of Electrolytic and Water Balance Substance into Peripheral Vein, Percutaneous Approach (ICD-10-PCS; 2024-06-24)
PROC: 3E033GC Introduction of Other Therapeutic Substance into Peripheral Vein, Percutaneous Approach (ICD-10-PCS; 2024-06-24)
PROC: 3E023GC Introduction of Other Therapeutic Substance into Muscle, Percutaneous Approach (ICD-10-PCS; 2024-06-24)
DX: K56.609 Unspecified intestinal obstruction, unspecified as to partial versus complete obstruction (principal); K57.92 Diverticulitis of intestine, part unspecified, without perforation or abscess without bleeding; G89.29 Other chronic pain; K52.9 Noninfective gastroenteritis and colitis, unspecified; D64.9 Anemia, unspecified; I10 Essential (primary) hypertension; E78.5 Hyperlipidemia, unspecified; Z87.19 Personal history of other diseases of the digestive system; Z87.891 Personal history of nicotine dependence
CPT/HCPCS: 0241U-QW; 36415; 74177-TC; 80048; 80053; 81003; 83735; 84100; 85025; 85027; 86803; 87086; 87389; 96361; 96365; 96372; 96375; 96376; 99285-25; G0378; J0131; Q9967

== ENCOUNTER 2024-10-14 01:07 | Inpatient (IN) | payer OTHER ==
[2024-10-14] MEDS ORDERED: MORPHINE SULFATE 2 MG/ML SYRINGE ONE (02:35)
[2024-10-14] MEDS ORDERED: ACETAMINOPHEN INJECTION 100 ML ONE ×2 (02:36→10:03)
[2024-10-14] MEDS ORDERED: ONDANSETRON 4 MG/2 ML VIAL ONE ×2 (02:36→07:19)
[2024-10-14 02:40] LABS: ABSOLUTE IMMATURE GRANULOCYTES 0.06 x10^3/uL (0.0-0.031); BASOPHILS # 0.03 x10^3/uL (0.01-0.08); EOSINOPHIL % 0.1 % (0.7-5.8); EOSINOPHILS # 0.01 x10^3/uL (0.04-0.36); MCHC 32.2 g/dl (32.2-35.5); MEAN CELL VOLUME 86.3 fl (79.4-94.8); MEAN PLT VOLUME 10.8 fl (9.4-12.3); MONOCYTE # 0.47 x10^3/uL (0.24-0.86); MONOCYTE % 4.0 % (4.7-12.5); RDW 14.6 % (12.4-16.6)
[2024-10-14] MEDS: SODIUM CHLORIDE 0.9% 500 ML INFUS.BAG IV ONE (02:42)
[2024-10-14] MEDS: ONDANSETRON 4 MG/2 ML VIAL IVPB ONE (02:42)
[2024-10-14] MEDS: ACETAMINOPHEN 1000 MG/100 ML BAG IVPB ONE (02:42)
[2024-10-14] MEDS: morphine CARPU-JECT 2 MG/1 ML DISP.SYRIN IVPUSH ONE (02:43)
[2024-10-14 03:23] LABS: CO2 25.0 mmol/L (21-32); GLUCOSE,RANDOM 152.0 mg/dL (74-106)
[2024-10-14 03:26] LABS: CREATININE 0.7 mg/dL (0.55-1.3); SGOT/AST 21.0 U/L (15-37); SGPT/ALT 26.0 U/L (13-61)
[2024-10-14 03:28] LABS: TOT PROT 7.2 g/dl (6.4-8.2)
[2024-10-14 03:29] LABS: ALK PHOS 120.0 U/L (45-117)
[2024-10-14 04:18] LABS: HIV INTERPRETATION NEGATIVE (NEGATIVE)
[2024-10-14] MEDS ORDERED: LIDOCAINE HCL 2% JELLY 11 ML TP ONE (04:51)
[2024-10-14 06:21] LABS: HCV DIAGNOSTIC IN-HOUSE W/RFLX NON-REACTIVE (NONREACTIVE)
[2024-10-14 07:02] LABS: ABSOLUTE IMMATURE GRANULOCYTES 0.05 x10^3/uL (0.0-0.031); BASOPHILS # 0.01 x10^3/uL (0.01-0.08); EOSINOPHIL % 0.0 % (0.7-5.8); EOSINOPHILS # 0.00 x10^3/uL (0.04-0.36); MCHC 31.2 g/dl (32.2-35.5); MEAN CELL VOLUME 88.6 fl (79.4-94.8); MEAN PLT VOLUME 11.0 fl (9.4-12.3); MONOCYTE # 0.43 x10^3/uL (0.24-0.86); MONOCYTE % 4.6 % (4.7-12.5); RDW 14.6 % (12.4-16.6)
[2024-10-14] MEDS: ONDANSETRON 4 MG/2 ML VIAL IVPUSH PRN (07:21)
[2024-10-14] MEDS ORDERED: SODIUM CHLORIDE 1,000 ML IV SCH (07:34)
[2024-10-14] MEDS: SODIUM CHLORIDE 1,000 ML IV SCH (07:43)
[2024-10-14 08:00] LABS: ALK PHOS 114.0 U/L (45-117); CO2 24.0 mmol/L (21-32); CREATININE 0.6 mg/dL (0.55-1.3); GLUCOSE,RANDOM 126.0 mg/dL (74-106); SGOT/AST 21.0 U/L (15-37); SGPT/ALT 26.0 U/L (13-61); TOT PROT 6.7 g/dl (6.4-8.2)
[2024-10-14] MEDS: DEXTROSE 5%-0.45% SALINE 1,000 ML IV SCH (08:30)
[2024-10-14 09:10] LABS: URINE APPEARANCE CLEAR; URINE BILIRUBIN NEGATIVE (NEGATIVE); URINE COLOR YELLOW; URINE GLUCOSE (UA) NEGATIVE (NEGATIVE); URINE KETONE TRACE (NEGATIVE); URINE LEUK ESTERASE NEGATIVE (NEGATIVE); URINE NITRITE NEGATIVE (NEGATIVE); URINE PROTEIN TRACE (NEGATIVE); URINE UROBILINOGEN 0.2 mg/dL (0.2-1.0)
[2024-10-14] MEDS: ACETAMINOPHEN 1000 MG/100 ML BAG IVPB PRN (10:05)
[2024-10-14 11:53] VITALS: BMI 24.0
[2024-10-15 07:29] LABS: MCHC 31.0 g/dl (32.2-35.5); MEAN CELL VOLUME 88.6 fl (79.4-94.8); MEAN PLT VOLUME 11.3 fl (9.4-12.3); RDW 14.6 % (12.4-16.6)
[2024-10-15 07:43] LABS: CO2 28.0 mmol/L (21-32); GLUCOSE,RANDOM 114.0 mg/dL (74-106)
[2024-10-15 07:46] LABS: CREATININE 0.6 mg/dL (0.55-1.3)
[2024-10-16 09:59] VITALS: BP 127/84; PULSE 76; RESP 16; TEMP 98.2
[2024-10-16] MEDS ORDERED: ACETAMINOPHEN 325 MG TABLET (FP) PO PRN (12:06)
[2024-10-16] MEDS: amLODIPine BESYLATE 5 MG TABLET (FP) PO SCH (12:50)
== END 2024-10-16 13:59 | disposition home or self-care (01) | DRG 390 ==
LOC: JER 01:07 → JERBED 05:05 → UNDODISIN 10:20 → J7W 10:26
PROVIDERS: ADMIT Internal Medicine; ATTEND Nurse Practitioner Family
DX: K56.600 Partial intestinal obstruction, unspecified as to cause (principal); I10 Essential (primary) hypertension; E78.5 Hyperlipidemia, unspecified; K57.90 Diverticulosis of intestine, part unspecified, without perforation or abscess without bleeding; R11.2 Nausea with vomiting, unspecified
CPT/HCPCS: 36415; 71045-TC-FY; 74019-TC-FY; 74177-TC; 80048; 80053; 81003; 82962; 83605; 83690; 83735; 84100; 85025; 85027; 86803; 86850; 86900; 86901; 87086; 87389; 93005; 93010; 99285-25; Q9967